=== PATIENT | female | born 1965 | race Caucasian/White ===

== ENCOUNTER 2016-09-29 14:23 | Outpatient (RCR) | payer BC ==
--- OUTSIDE RECORDS SUMMARY | 2016-09-24 15:33 | XMS REPORT | Continuity of Care Document ---
Author Author [facility] Organization [facility] Address Unknown Phone Unavailable Care Team Providers Care [employer] Maintenance Name Role Phone CHRIS CASTRO MD PCP Insurance Providers Payer Name Policy Number Subscriber Name Relationship [facility] [id number] Kristie Guerra Self / Same As Patient Advance Directives Directive Response Recorded Date/Time Advance Directives No 07/19/15 1:33pm Health Care Power of Senior Mechanical Development Engineer No 07/19/15 1:33pm Organ Donor No 07/19/15 1:33pm Problems Active Problems Medical Problem Onset Date Status Muscle strain Unknown Acute Medications Current Home Medications Medication Dose Units Route Directions Days/Qty Instructions Start Date Enalapril Maleate 20 Mg 20 Mg Oral Daily 01/28/11 Terazosin Hcl 5 Mg 5 Mg Oral Daily 01/28/11 Carvedilol (Coreg) 25 Mg 1 Each Oral Twice A Day 01/28/11 Hydrochlorothiazide 25 Mg 25 Mg Oral Daily 01/28/11 Pantoprazole Sodium 40 Mg 40 Mg Oral Daily 01/28/11 Citalopram Hydrobromide 20 Mg 20 Mg Oral Daily 06/12/11 Colestipol Hcl 1 Gm 1 Gm Oral Daily 03/15/14 Ibuprofen 200 Mg 200 Mg Oral As Needed for Pain 03/15/14 Topiramate 100 Mg 150 Mg Oral 03/16/14 [Flexeril] 5 Mg Oral Twice A Day as needed for Pain 10 07/19/15 Past Home Medications Medication Directions Ordered Status [Vit D] , 01/28/11 Discontinued [Tylenol Arthritis] , 01/28/11 Discontinued Methotrexate 2.5 Mg Tab, 2.5 Mg Oral Mon,Wed,Fri 01/28/11 Discontinued Paroxetine Hcl 20 Mg Tablet, 20 Mg Oral Daily 01/28/11 Discontinued Acetaminophen/Hydrocodone Bitart (Lorcet-Hd) 1 Each Capsule, 1 - 2 Each Oral Q 4 - 6 Hrs Prn 01/28/11 Discontinued Potassium Chloride 20 Meq Tabsr, 1 Each Oral Daily 06/12/11 Discontinued Cholecalciferol 2,000 Unit Capsule, 2000 Unit Oral Daily 06/12/11 Discontinued Multivitamins 1 Tab Tablet, 1 Tab Oral Daily 06/12/11 Discontinued Acetaminophen 650 Mg Cplt, 650 Mg Oral Four Times Daily 06/12/11 Discontinued Lorazepam (Ativan) 0.5 Mg Tablet, 1 Each Oral Daily 06/12/11 Discontinued Oxycodone Hcl 10 Mg Tablet, 5 Mg Oral Q 4 Hr Prn 06/26/11 Discontinued [place]-3 Fatty Acids/Fish Oil 1 Each Capsule, 1 Each Oral Twice A Day Discontinued Glimepiride 4 Mg Tab, 4 Mg Oral Daily@0630 03/15/14 Discontinued Social History Social History Problem Response Recorded Date/Time Alcohol Use Occasionally Uses 07/19/2015 1:33pm Recreational Drug Use No 07/19/2015 1:33pm Recent Foreign Travel N SEE [facility] 10/16/2015 2:09pm Sexually Transmitted Disease No 07/19/2015 1:33pm Do you dip or chew tobacco? No 07/19/2015 1:33pm Hospital Discharge Instructions No hospital discharge instructions. Plan of Care Prescriptions See Medication Section Functional Status No functional status results. Allergies, Adverse Reactions, Alerts No known allergies. Immunizations Name Given Type Date of Pneumonia Vaccine 03/16/11 Historical Vital Signs No known vital signs results. Results Laboratory Results Test Name Result Units Flags Reference Collection Date/Time Result Date/ Time Comments White Blood Count 3.3 10^3/uL L 4.3-11.0 10/16/2015 2:28pm 10/16/2015 2: 34pm Red Blood Count 4.31 10^6/uL L 4.35-5.85 10/16/2015 2:28pm 10/16/2015 2: 34pm Hemoglobin 12.1 G/DL 11.5-16.0 10/16/2015 2:28pm 10/16/2015 2:34pm Hematocrit 35 % 35-52 10/16/2015 2:10/16/2015 2:34pm Mean Corpuscular Volume 81 FL 80-99 10/16/2015 2:10/16/2015 2: 34pm Mean Corpuscular Hemoglobin 28 PG 25-34 10/16/2015 2:10/16/2015 2: 34pm Mean Corpuscular Hemoglobin Concent 35 G/DL 32-36 10/16/2015 2: 2:34pm Red Cell Distribution Width 15.4 % H 10.0-14.5 10/16/2015 2:2015 2:34pm Platelet Count 82 10^3/uL L 130-400 10/16/2015 2:10/16/2015 2:34pm Mean Platelet Volume 9.0 FL 7.4-10.4 10/16/2015 2:10/16/2015 2: 34pm Neutrophils (%) (Auto) 67 % 42-75 10/16/2015 2:10/16/2015 2:34pm Lymphocytes (%) (Auto) 25 % 12-44 10/16/2015 2:10/16/2015 2:34pm Monocytes (%) (Auto) 6 % 0-12 10/16/2015 2:10/16/2015 2:34pm Eosinophils (%) (Auto) 2 % 0-10 10/16/2015 2:10/16/2015 2:34pm Basophils (%) (Auto) 0 % 0-10 10/16/2015 2:10/16/2015 2:34pm Neutrophils # (Auto) 2.2 X 10^3 1.8-7.8 10/16/2015 2:10/16/2015 2: 34pm Lymphocytes # (Auto) 0.8 X 10^3 L 1.0-4.0 10/16/2015 2:10/16/2015 2: 34pm Monocytes # (Auto) 0.2 X 10^3 0.0-1.0 10/16/2015 2:10/16/2015 2: 34pm Eosinophils # (Auto) 0.1 10^3/uL 0.0-0.3 10/16/2015 2:10/16/2015 2 :34pm Basophils # (Auto) 0.0 10^3/uL 0.0-0.1 10/16/2015 2:10/16/2015 2: 34pm Sodium Level 139 MMOL/L 135-145 10/16/2015 2:10/16/2015 3:25pm Potassium Level 3.5 MMOL/L L 3.6-5.0 10/16/2015 2:10/16/2015 3:25pm Chloride Level 105 MMOL/L 98-107 10/16/2015 2:10/16/2015 3:25pm Carbon Dioxide Level 27 MMOL/L 21-32 10/16/2015 2:10/16/2015 3: 25pm Anion Gap 7 MMOL/L 5-14 10/16/2015 2:10/16/2015 3:25pm Blood Urea Nitrogen 13 MG/DL 7-18 10/16/2015 2:10/16/2015 3:25pm Creatinine 0.69 MG/DL 0.60-1.30 10/16/2015 2:10/16/2015 3:25pm BUN/Creatinine Ratio 19 10/16/2015 2:10/16/2015 3:25pm Estimat Glomerular Filtration Rate > 60 10/16/2015 2:2015 3:25pm GFR INTERPRETIVE DATA UNITS FOR ESTIMATED GFR (eGFR): mL/min/1.73 M2 REFERENCE RANGE FOR ESTIMATED GFR (eGFR) eGFR NORMAL eGFR >60 MODERATELY DECREASED eGFR 30-59 SEVERLY DECREASED eGFR 15-29 KIDNEY FAILURE <15 (OR DIALYSIS) Glucose Level 114 MG/DL H 70-105 10/16/2015 2:10/16/2015 3:25pm Calcium Level 9.0 MG/DL 8.5-10.1 10/16/2015 2:10/16/2015 3:25pm Magnesium Level 1.9 MG/DL 1.8-2.4 10/16/2015 2:10/16/2015 3:25pm Total Bilirubin 0.9 MG/DL 0.1-1.0 10/16/2015 2:10/16/2015 3:25pm Alkaline Phosphatase 114 U/L 40-136 10/16/2015 2:10/16/2015 3: 25pm Aspartate Amino Transf (AST/SGOT) 35 U/L H 5-34 10/16/2015 2:28pm 2015 3:25pm Alanine Aminotransferase (ALT/SGPT) 26 U/L 0-55 10/16/2015 2:28pm 10/16 3:25pm Lactate Dehydrogenase 211 U/L 125-220 10/16/2015 2:28pm 10/16/2015 3: 25pm Total Protein 7.4 G/DL 6.4-8.2 10/16/2015 2:28pm 10/16/2015 3:25pm Albumin 3.9 G/DL 3.2-4.5 10/16/2015 2:28pm 10/16/2015 3:25pm Ferritin 89 NG/ML 15-150 10/16/2015 2:28pm 10/17/2015 6:44am Test performed at [address], [place] [address] CLIA# [id number], Michelle Castañeda MD - [employer] Procedures No known history of procedures. Encounters Encounter Location Arrival/Admit Date Discharge/Depart Date Attending Provider Discharged Recurring [facility] 10/16/15 2:09pm 11:59pm MARIZA BAZZI
[2016-09-24 15:39] LABS: BASOPHILS % (AUTO) 0 % (0-10); EOSINOPHILS % (AUTO) 1 % (0-10); LYMPHOCYTES # (AUTO) 0.5 X 10^3 (1.0-4.0); LYMPHOCYTES % (AUTO) 18 % (12-44); MEAN CORPUSCULAR HEMOGLOBIN 28 PG (25-34); MEAN CORPUSCULAR HGB CONC 33 G/DL (32-36); MEAN CORPUSCULAR VOLUME 84 FL (80-99); MEAN PLATELET VOLUME 9.4 FL (7.4-10.4); MONOCYTES # (AUTO) 0.2 X 10^3 (0.0-1.0); MONOCYTES % (AUTO) 6 % (0-12); NEUTROPHILS # (AUTO) 2.3 X 10^3 (1.8-7.8); NEUTROPHILS % (AUTO) 75 % (42-75); PLATELET COUNT 61 10^3/uL (130-400); RED BLOOD COUNT 4.15 10^6/uL (4.35-5.85); RED CELL DISTRIBUTION WIDTH 15.9 % (10.0-14.5)
[2016-09-24 16:05] LABS: ALANINE AMINOTRANSFERASE 35 U/L (0-55); ALBUMIN 3.5 G/DL (3.2-4.5); ANION GAP 7 MMOL/L (5-14); ASPARTATE AMINO TRANSFERASE 32 U/L (5-34); BILIRUBIN,TOTAL 1.4 MG/DL (0.1-1.0); BLOOD UREA NITROGEN 13 MG/DL (7-18); BUN/CREATININE RATIO 16; CALCIUM 8.9 MG/DL (8.5-10.1); CARBON DIOXIDE 28 MMOL/L (21-32); CHLORIDE 100 MMOL/L (98-107); CREATININE SERUM 0.79 MG/DL (0.60-1.30); GFR ESTIMATED > 60; GLUCOSE 258 MG/DL (70-105); POTASSIUM 3.9 MMOL/L (3.6-5.0); SODIUM 135 MMOL/L (135-145); TOTAL PROTEIN 7.1 G/DL (6.4-8.2)
[~2016-09-29 14:23] MED LIST: CARV25TA PO; CHOL2000 PO; CITA20TA4 PO; COLE1TAB PO; ENAL20TA76 PO; FISH OIL 1,2001 EAC1 PO; GLMP4T PO; HCT25T PO; HYDR1CAP2 PO; IBUP200T48 PO; KCL20TCR PO; LORA0.5T PO; MTX2.5T PO; MULT-608 PO; NF-TYLARTH PO; OXYC10TA7 PO; PANT40TA PO; PARO20TA57 PO; TERA5CAP10 PO; TOPI100T2 PO; flexeril PO; tylenol arthritis; vit d
== END 2016-12-23 | disposition home or self-care (01) ==
LOC: ONC 14:23
PROVIDERS: ATTEND Internal Medicine Hematology & Oncology
DX: D61.818 Other pancytopenia (principal); E11.9 Type 2 diabetes mellitus without complications; I10 Essential (primary) hypertension; M06.9 Rheumatoid arthritis, unspecified; Z79.899 Other long term (current) drug therapy
CPT/HCPCS: 36415; 80053; 82728; 85025; 99213

== ENCOUNTER → 2017-03-25 | Outpatient (CLI) | payer BC | LOC: LAB 09:32 | PROVIDERS: ATTEND Allergy & Immunology | DX: M05.79 Rheumatoid arthritis with rheumatoid factor of multiple sites without organ or systems involvement (principal); Z79.899 Other long term (current) drug therapy | CPT/HCPCS: 36415; 85652; 86141 ==

== ENCOUNTER 2017-04-01 14:58 | Outpatient (RCR) | payer BC ==
[2017-03-25 09:35] LABS: BASOPHILS % (AUTO) 0 % (0-10); EOSINOPHILS % (AUTO) 2 % (0-10); LYMPHOCYTES # (AUTO) 0.5 X 10^3 (1.0-4.0); LYMPHOCYTES % (AUTO) 22 % (12-44); MEAN CORPUSCULAR HEMOGLOBIN 27 PG (25-34); MEAN CORPUSCULAR HGB CONC 33 G/DL (32-36); MEAN CORPUSCULAR VOLUME 81 FL (80-99); MEAN PLATELET VOLUME 8.9 FL (7.4-10.4); MONOCYTES # (AUTO) 0.2 X 10^3 (0.0-1.0); MONOCYTES % (AUTO) 9 % (0-12); NEUTROPHILS # (AUTO) 1.6 X 10^3 (1.8-7.8); NEUTROPHILS % (AUTO) 68 % (42-75); PLATELET COUNT 53 10^3/uL (130-400); RED BLOOD COUNT 3.88 10^6/uL (4.35-5.85); RED CELL DISTRIBUTION WIDTH 16.4 % (10.0-14.5); WHITE BLOOD COUNT 2.4 10^3/uL (4.3-11.0)
[2017-03-25 10:19] LABS: ALANINE AMINOTRANSFERASE 24 U/L (0-55); ALBUMIN 3.4 GM/DL (3.2-4.5); ANION GAP 7 MMOL/L (5-14); ASPARTATE AMINO TRANSFERASE 29 U/L (5-34); BILIRUBIN,TOTAL 1.6 MG/DL (0.1-1.0); BLOOD UREA NITROGEN 10 MG/DL (7-18); BUN/CREATININE RATIO 14; CALCIUM 8.5 MG/DL (8.5-10.1); CARBON DIOXIDE 26 MMOL/L (21-32); CHLORIDE 105 MMOL/L (98-107); CREATININE SERUM 0.69 MG/DL (0.60-1.30); GFR ESTIMATED > 60; GLUCOSE 212 MG/DL (70-105); LACTATE DEHYDROGENASE 212 U/L (125-220); POTASSIUM 3.6 MMOL/L (3.6-5.0); SODIUM 138 MMOL/L (135-145); TOTAL PROTEIN 6.9 GM/DL (6.4-8.2)
== END 2017-05-22 | disposition home or self-care (01) ==
LOC: ONC 14:58
PROVIDERS: ATTEND Internal Medicine Hematology & Oncology
DX: D61.818 Other pancytopenia (principal); E11.9 Type 2 diabetes mellitus without complications; I10 Essential (primary) hypertension; M06.9 Rheumatoid arthritis, unspecified; Z79.899 Other long term (current) drug therapy
CPT/HCPCS: 80053; 82105; 82728; 83615; 85025; 99213

== ENCOUNTER 2017-05-27 19:00 | Inpatient (IN) | payer BC ==
[~2017-05-27] VITALS: Ht 154.9 cm; Wt 105.7 kg
[2017-05-27 19:00] VITALS: BP 156/81
[2017-05-27] MEDS ORDERED: ACETAMINOPHEN 500 MG TAB (TYLENOL) PO PRN (19:45)
[2017-05-27] MEDS ORDERED: CATHETER FLUSH 10 ML SYR IV PRN (19:45)
[2017-05-27] MEDS ORDERED: fentaNYL INJECTION 100 MCG/2 ML AMP IV PRN (19:45)
[2017-05-27] MEDS ORDERED: KETOROLAC 15 MG/ML VIAL IV NR (19:45)
--- NOTE | 2017-05-27 19:56 | History & Physicial ---
History of Present Illness History of Present Illness Reason for visit/HPI PT PRESENTED HERSELF TO THE OFFICE TODAY WITH COMPLAINT OF A RASH IN HER GROIN, UNDER THE FOLD IN HER LOWER ABDOMINAL REGION WELL IN HER PUBIC AREA. SHE STATES THAT THE RASH STARTED ON 05/18/17 AND HAS GOTTEN PROGRESSIVELY WORSE. SHE HAD MEDICATION THAT SHE WAS USING CLOBETASOL AND KETOCONAZOLE CREAM AND NYSTATIN POWDER. SHE ALSO TOOK 3 DIFLUCAN PILLS. SHE REPORTS THAT SHE HAS BEEN HAVING CHILLS, NO FEVERS, BUT HAS BEEN HAVING BODY ACHES AND FATIGUED. SHE DID NOT WANT TO BE ADMITTED, BUT WE TALKED HER INTO ADMISSION. Date of Admission May 27, 2017 at 19:02 Date Seen by Provider: May 27, 2017 Time Seen by Provider: 20:15 Attending Physician Chris Snider MD Admitting Physician Chris Snider MD Consult Allergies and Home Medications Allergies Coded Allergies: bacitracin (Verified Allergy, Unknown, 05/28/17) neomycin (Verified Allergy, Unknown, 05/28/17) polymyxin B (Verified Allergy, Unknown, 05/28/17) Home Medications Ascorbic Acid 1,000 Mg Tablet, 1,000 MG PO DAILY, (Reported) Biotin 1,000 Mcg Tablet, 1,000 MCG PO DAILY, (Reported) Carvedilol 25 Mg Tablet, 25 MG PO BID, (Reported) Cholecalciferol (Vitamin D3) 2,000 Unit Capsule, 2,000 UNIT PO DAILY, (Reported) Colestipol HCl 1 Gm Tablet, 1 GM PO DAILY, (Reported) Cyanocobalamin (Vitamin B-12) 1,000 Mcg Tablet, 1,000 MCG PO DAILY, (Reported) Enalapril Maleate 20 Mg Tablet, 20 MG PO DAILY, (Reported) Escitalopram Oxalate 20 Mg Tablet, 20 MG PO DAILY, (Reported) Ferrous Sulfate 325 Mg Tablet, 325 MG PO DAILY, (Reported) Hydrochlorothiazide 25 Mg Tablet, 25 MG PO DAILY, (Reported) Ibuprofen 200 Mg Tablet, 400 MG PO DAILY PRN for PAIN-MILD, (Reported) Magnesium Chloride 64 Mg Tab, 64 MG PO BID, (Reported) Omeprazole 40 Mg Capsule.dr, 40 MG PO HS, (Reported) Potassium Chloride 20 Meq Tab.er.prt, 40 MEQ PO BID, (Reported) TAKES 2 (20MEQ) TABLETS Prednisone 5 Mg Tablet, 5 MG PO DAILY, (Reported) Terazosin HCl 5 Mg Capsule, 5 MG PO DAILY, (Reported) Topiramate 50 Mg Tablet, 50 MG PO BID, (Reported) Vitamin E Acetate 400 Unit Capsule, 400 UNIT PO BID, (Reported) Past Koyfcox-Pamgzb-Xgrzoa Hx Patient Social History Marrital Status: Living Status: LIVES AT HOME WITH SPOUSE Employed/Student: employed Alcohol Use: Denies Use Recreational Drug Use: No Smoking Status: Never a Smoker 2nd Hand Smoke Exposure: No Physical Abuse Screen: No Sexual Abuse: No Recent Foreign Travel: No Contact w/other who traveled: No Recent Hopitalizations: No Recent Infectious Disease Expo: No Immunizations Up To Date Date of Pneumonia Vaccine: Mar 16, 2011 Seasonal Allergies Seasonal Allergies: Yes Surgeries Yes Abdominal (CSECTION), Appendectomy, Gallbladder Respiratory No Currently Using CPAP: No Currently Using BIPAP: No Cardiovascular Yes High Cholesterol, Hypertension Neurological Yes Headaches /Migraines Reproductive System : No Hx Reproductive Disorders: No Sexually Transmitted Disease: No Genitourinary No Gastrointestinal Yes Esophageal Varices, Cirrhosis Musculoskeletal No Endocrine History of Endocrine Disorders: Yes Endocrine Disorders: Diabetes, Non-Insulin dep HEENT History of HEENT Disorders: No Loss of Vision: Denies Hearing Impairment: Denies Cancer No Psychosocial History of Psychiatric Problem: Yes Behavioral Health Disorders: Anxiety, Depression Integumentary History of Skin or Integumenta: Yes Skin/Integumentary Disorders: Psoriasis Blood Transfusions History of Blood Disorders: No Adverse Reaction to a Blood Tr: No Reviewed Nursing Assessment Reviewed/Agree w Nursing PMH: Yes Family Medical History Significant Family History: Heart Disease, Hypertension Constitutional: chills, No diaphoresis, fever, malaise EENTM: No hoarseness, No nose pain, No throat swelling Respiratory: No cough, No dyspnea on exertion, No short of breath Cardiovascular: No chest pain, No edema Gastrointestinal: No abdominal pain, No constipation, No diarrhea, No nausea, No vomiting Genitourinary: other (PAIN AND INFLAMMATION OVER PUBIS) Musculoskeletal: No muscle pain, No muscle weakness Skin: other (ERYTHEMA FROM TOP OF SUPRAPUBIC REGION DOWN TO THIGHS BELOW INGUINAL REGION) Psychiatric/Neurological: Denies Anxiety, Denies Depressed, Denies Headache All Other Systems Reviewed Negative Unless Noted: Yes Physical Exam Vital Signs Vital Sign - Last 12Hours 05/27/17 19:00 Temp 99.5 Pulse 78 Resp 18 B/P (MAP) 156/81 Pulse Ox 95 O2 Delivery Room Air Capillary Refill : General Appearance: No Apparent Distress, WD/WN Eyes: Bilateral Eye Normal Inspection, Bilateral Eye PERRL, Bilateral Eye EOMI HEENT: PERRL/EOMI, Pharynx Normal Neck: Full Range of Motion, Supple Respiratory: Chest Non Tender, Lungs Clear, Normal Breath Sounds, No Accessory Muscle Use Cardiovascular: Regular Rate, Rhythm Gastrointestinal: Normal Bowel Sounds, Non Tender, Soft Rectal: Deferred Back: Normal Inspection Extremity: Normal Capillary Refill, Non Tender, No Calf Tenderness, No Pedal Edema Neurologic/Psychiatric: Alert, Oriented x3, No Motor/Sensory Deficits, Normal Mood/Affect Skin: Erythema (AT SUPRAPUBIC REGION DOWN TO BILATERAL GROIN AND ON TOP OF THIGHS BILATERALLY) Assessment/Plan Assessment and Plan PANNICULITIS CELLULITIS HYPERTENSION PSORIASIS HYPERLIPIDEMIA DEPRESSION ANXIETY ESOPHAGEAL REFLUX PANNICULITIS - CELLULITIS - PT ON IV VANCOMYCIN - CULTURE OF SUPRAPUBIC REGION PENDING. HYPERTENSION - RESTARTED CARVEDILOL, WILL VERIFY HOME MEDICATIONS. PSORIASIS - MONITOR SYMPTOMS - RESTART PREDNISONE. HYPERLIPIDEMIA - HOLD HOME MEDICATIONS. DEPRESSION - RESTART SSRI. ANXIETY - ALPRAZOLAM RESTARTED. ESOPHAGEAL REFLUX - RESTART PPI. Problems: Admission Diagnosis PANNICULITIS CELLULITIS HYPERTENSION PSORIASIS HYPERLIPIDEMIA DEPRESSION ANXIETY ESOPHAGEAL REFLUX CHRIS SNIDER MD May 27, 2017 19:56
[2017-05-27 20:00] LABS: BASOPHILS % (AUTO) 1 % (0-10); EOSINOPHILS % (AUTO) 1 % (0-10); LYMPHOCYTES # (AUTO) 0.7 X 10^3 (1.0-4.0); LYMPHOCYTES % (AUTO) 18 % (12-44); MEAN CORPUSCULAR HEMOGLOBIN 27 PG (25-34); MEAN CORPUSCULAR HGB CONC 33 G/DL (32-36); MEAN CORPUSCULAR VOLUME 81 FL (80-99); MEAN PLATELET VOLUME 10.3 FL (7.4-10.4); MONOCYTES # (AUTO) 0.4 X 10^3 (0.0-1.0); MONOCYTES % (AUTO) 10 % (0-12); NEUTROPHILS # (AUTO) 2.7 X 10^3 (1.8-7.8); NEUTROPHILS % (AUTO) 70 % (42-75); PLATELET COUNT 66 10^3/uL (130-400); RED BLOOD COUNT 4.36 10^6/uL (4.35-5.85); RED CELL DISTRIBUTION WIDTH 15.2 % (10.0-14.5); WHITE BLOOD COUNT 3.8 10^3/uL (4.3-11.0)
[2017-05-27] MEDS: VANCOMYCIN 1500 MG/NS 500 ML IVPB IV SCH ×2 (20:03)
[2017-05-27 20:23] LABS: ALANINE AMINOTRANSFERASE 23 U/L (0-55); ALBUMIN 3.6 GM/DL (3.2-4.5); ANION GAP 8 MMOL/L (5-14); ASPARTATE AMINO TRANSFERASE 27 U/L (5-34); BILIRUBIN,TOTAL 1.8 MG/DL (0.1-1.0); BLOOD UREA NITROGEN 10 MG/DL (7-18); BUN/CREATININE RATIO 14; CALCIUM 9.1 MG/DL (8.5-10.1); CARBON DIOXIDE 27 MMOL/L (21-32); CHLORIDE 103 MMOL/L (98-107); CREATININE SERUM 0.72 MG/DL (0.60-1.30); GFR ESTIMATED > 60; GLUCOSE 110 MG/DL (70-105); POTASSIUM 3.8 MMOL/L (3.6-5.0); SODIUM 138 MMOL/L (135-145); TOTAL PROTEIN 7.5 GM/DL (6.4-8.2)
[2017-05-27] MEDS: NS IV 1000 ML 1,000 ML IV SCH (20:37)
[2017-05-27] MEDS: MUPIROCIN 2% OINT 22 GM (BACTROBAN) TUBE TOP SCH (20:37)
[2017-05-27] MEDS: LACTOBACILLUS Acidoph/Bulgar (LACTINEX/FLORANEX) TAB PO SCH (20:37)
[2017-05-28] VITALS: BP 168/75
[2017-05-28 04:10] VITALS: BP 158/77
[2017-05-28 06:47] LABS: BASOPHILS % (AUTO) 0 % (0-10); EOSINOPHILS # (AUTO) 0.1 10^3/uL (0.0-0.3); EOSINOPHILS % (AUTO) 2 % (0-10); LYMPHOCYTES # (AUTO) 0.6 X 10^3 (1.0-4.0); LYMPHOCYTES % (AUTO) 20 % (12-44); MEAN CORPUSCULAR HEMOGLOBIN 27 PG (25-34); MEAN CORPUSCULAR HGB CONC 33 G/DL (32-36); MEAN CORPUSCULAR VOLUME 82 FL (80-99); MEAN PLATELET VOLUME 10.1 FL (7.4-10.4); MONOCYTES # (AUTO) 0.3 X 10^3 (0.0-1.0); MONOCYTES % (AUTO) 11 % (0-12); NEUTROPHILS % (AUTO) 68 % (42-75); PLATELET COUNT 64 10^3/uL (130-400); RED BLOOD COUNT 4.05 10^6/uL (4.35-5.85); RED CELL DISTRIBUTION WIDTH 15.2 % (10.0-14.5); WHITE BLOOD COUNT 2.9 10^3/uL (4.3-11.0)
[2017-05-28] MEDS ORDERED: INFLUENZA TRIvalent 2017-2018 0.5 ML/45 MCG SYR IM ONE (07:00)
[2017-05-28 07:10] LABS: ALANINE AMINOTRANSFERASE 21 U/L (0-55); ALBUMIN 3.2 GM/DL (3.2-4.5); ANION GAP 6 MMOL/L (5-14); ASPARTATE AMINO TRANSFERASE 23 U/L (5-34); BILIRUBIN,TOTAL 1.7 MG/DL (0.1-1.0); BLOOD UREA NITROGEN 10 MG/DL (7-18); BUN/CREATININE RATIO 14; CALCIUM 8.7 MG/DL (8.5-10.1); CARBON DIOXIDE 28 MMOL/L (21-32); CHLORIDE 107 MMOL/L (98-107); CREATININE SERUM 0.73 MG/DL (0.60-1.30); GFR ESTIMATED > 60; GLUCOSE 139 MG/DL (70-105); POTASSIUM 3.4 MMOL/L (3.6-5.0); SODIUM 141 MMOL/L (135-145); TOTAL PROTEIN 6.7 GM/DL (6.4-8.2)
[2017-05-28 08:02] VITALS: BP 176/91
[2017-05-28] MEDS: VANCOMYCIN 1500 MG/NS 500 ML IVPB IV SCH ×4 (08:15→20:29)
[2017-05-28] MEDS: LACTOBACILLUS Acidoph/Bulgar (LACTINEX/FLORANEX) TAB PO SCH ×4 (09:37→20:24)
[2017-05-28] MEDS: MUPIROCIN 2% OINT 22 GM (BACTROBAN) TUBE TOP SCH ×3 (09:38→20:24)
--- NOTE | 2017-05-28 09:48 | Progress Note (SOAP) ---
Subjective Date Seen by Provider: May 28, 2017 Time Seen by Provider: 09:50 Subjective/Events-last exam PT REPORTS THAT SHE IS FEELING A LITTLE BETTER TODAY. SHE REPORTS THAT SHE IS STILL HAVING SOME DISCOMFORT IN HER GROIN, BUT IT HAS ALSO IMPROVED. SHE STATES THAT SHE HAS NOT HAD FEVERS, HER CHILLS ARE BETTER. Review of Systems General: Fatigue HEENT: No Head Aches Pulmonary: No Dyspnea, No Cough Cardiovascular: No: Chest Pain Gastrointestinal: No: Nausea Genitourinary: No Dysuria Neurological: Weakness ERYTHEMA OF SKIN Objective Exam Vital Signs Date Time Temp Pulse Resp B/P (MAP) Pulse Ox O2 Delivery O2 Flow Rate FiO2 05/28/17 08:02 97.5 67 18 176/91 96 Room Air 05/28/17 04:10 97.0 69 18 158/77 96 Room Air 05/28/17 00:00 97.5 72 19 168/75 97 Room Air 05/27/17 19:00 99.5 78 18 156/81 95 Room Air Capillary Refill : General Appearance: No Apparent Distress, WD/WN HEENT: PERRL/EOMI Neck: Full Range of Motion, Supple Respiratory: Chest Non Tender, Lungs Clear, Normal Breath Sounds Gastrointestinal: normal bowel sounds, non tender, soft Extremity: Normal Capillary Refill Neurologic/Psychiatric: Alert, Oriented x3, Normal Mood/Affect Skin: Erythema (IN GROIN, MACERATED SKIN TISSUE, - ERYTHEMA HAS IMPROVED FROM ON ADMISSION.) Results Lab Laboratory Tests 05/27/17 19:40: White Blood Count 3.8L, Red Blood Count 4.36, Hemoglobin 11.8, Hematocrit 35, Mean Corpuscular Volume 81, Mean Corpuscular Hemoglobin 27, Mean Corpuscular Hemoglobin Concent 33, Red Cell Distribution Width 15.2H, Platelet Count 66L, Mean Platelet Volume 10.3, Neutrophils (%) (Auto) 70, Lymphocytes (%) (Auto) 18 , Monocytes (%) (Auto) 10, Eosinophils (%) (Auto) 1, Basophils (%) (Auto) 1, Neutrophils # (Auto) 2.7, Lymphocytes # (Auto) 0.7L, Monocytes # (Auto) 0.4, Eosinophils # (Auto) 0.0, Basophils # (Auto) 0.0, Sodium Level 138, Potassium Level 3.8, Chloride Level 103, Carbon Dioxide Level 27, Anion Gap 8, Blood Urea Nitrogen 10, Creatinine 0.72, Estimat Glomerular Filtration Rate > 60, BUN/ Creatinine Ratio 14, Glucose Level 110H, Lactic Acid Level 0.80, Calcium Level 9.1, Total Bilirubin 1.8H, Aspartate Amino Transf (AST/SGOT) 27, Alanine Aminotransferase (ALT/SGPT) 23, Alkaline Phosphatase 116, Total Protein 7.5, Albumin 3.6 05/28/17 03:54: Glucometer 156H 05/28/17 06:12: White Blood Count 2.9L, Red Blood Count 4.05L, Hemoglobin 11.0L, Hematocrit 33L , Mean Corpuscular Volume 82, Mean Corpuscular Hemoglobin 27, Mean Corpuscular Hemoglobin Concent 33, Red Cell Distribution Width 15.2H, Platelet Count 64L, Mean Platelet Volume 10.1, Neutrophils (%) (Auto) 68, Lymphocytes (%) (Auto) 20 , Monocytes (%) (Auto) 11, Eosinophils (%) (Auto) 2, Basophils (%) (Auto) 0, Neutrophils # (Auto) 2.0, Lymphocytes # (Auto) 0.6L, Monocytes # (Auto) 0.3, Eosinophils # (Auto) 0.1, Basophils # (Auto) 0.0, Sodium Level 141, Potassium Level 3.4L, Chloride Level 107, Carbon Dioxide Level 28, Anion Gap 6, Blood Urea Nitrogen 10, Creatinine 0.73, Estimat Glomerular Filtration Rate > 60, BUN/ Creatinine Ratio 14, Glucose Level 139H, Calcium Level 8.7, Total Bilirubin 1.7H , Aspartate Amino Transf (AST/SGOT) 23, Alanine Aminotransferase (ALT/SGPT) 21, Alkaline Phosphatase 118, Total Protein 6.7, Albumin 3.2 Assessment/Plan Assessment/Plan Assess & Plan/Chief Complaint PANNICULITIS CELLULITIS HYPERTENSION PSORIASIS HYPERLIPIDEMIA DEPRESSION ANXIETY ESOPHAGEAL REFLUX PANNICULITIS - CELLULITIS - PT ON IV VANCOMYCIN - CULTURE OF SUPRAPUBIC REGION PENDING. HYPERTENSION - RESTARTED CARVEDILOL, WILL VERIFY HOME MEDICATIONS AND RESTART CHANG-I. PSORIASIS - MONITOR SYMPTOMS - RESTARTED PREDNISONE. HYPERLIPIDEMIA - HOLD HOME MEDICATIONS. DEPRESSION - RESTART SSRI. ANXIETY - ALPRAZOLAM RESTARTED. ESOPHAGEAL REFLUX - RESTART PPI. ANTICIPATE THAT THE PATIENT MAY BE ABLE TO BE DISCHARGED WEDNESDAY OR WEDNESDAY OF NEXT WEEK. Clinical Quality Measures DVT/VTE Risk/Contraindication: Risk Factor Score Per Nursin RFS Level Per Nursing on Admit: 3=High Contraindications-Pharm: Other *list below* Other: low plt level and infection in abdomen CHRIS CASTRO MD May 28, 2017 09:48
[2017-05-28] MEDS ORDERED: PRED5TAB PO (10:07)
[2017-05-28] MEDS ORDERED: CARV25TA PO (10:07)
[2017-05-28] MEDS ORDERED: VITA400C60 PO (10:07)
[2017-05-28] MEDS ORDERED: POTA20TA8 PO (10:07)
[2017-05-28] MEDS ORDERED: NFBIOT1000 PO (10:07)
[2017-05-28] MEDS ORDERED: ENAL20TA PO (10:07)
[2017-05-28] MEDS ORDERED: COLE1TAB PO (10:07)
[2017-05-28] MEDS ORDERED: HYDR25TA4 PO (10:07)
[2017-05-28] MEDS ORDERED: CYAN10006 PO (10:07)
[2017-05-28] MEDS ORDERED: CHOL20003 PO (10:07)
[2017-05-28] MEDS ORDERED: FERR-84 PO (10:07)
[2017-05-28] MEDS ORDERED: ESCI20TA45 PO (10:07)
[2017-05-28] MEDS ORDERED: TOPI50TA13 PO (10:07)
[2017-05-28] MEDS ORDERED: NF-MAG64T PO (10:07)
[2017-05-28] MEDS ORDERED: IBUP-2055 PO (10:07)
[2017-05-28] MEDS ORDERED: ASCO10006 PO (10:07)
[2017-05-28] MEDS ORDERED: OMEP40CA36 PO (10:07)
[2017-05-28] MEDS ORDERED: TERA5CAP3 PO (10:07)
[2017-05-28 12:55] VITALS: BP 183/96
[2017-05-28] MEDS ORDERED: cloNIDine 0.1 MG (CATAPRES) TAB PO NR (14:15)
[2017-05-28] MEDS: NS IV 1000 ML 1,000 ML IV SCH ×2 (15:43→22:33)
[2017-05-28 16:00] VITALS: BP 173/82
[2017-05-28] MEDS: KCL 20 MEQ TAB (K-DUR) PO SCH (17:10)
[2017-05-28] MEDS ORDERED: TROUGH ORDER-PHARMACY XX NR (19:00)
[2017-05-28 20:11] VITALS: BP 183/83
[2017-05-28] MEDS: toPIRamate 25 MG (TOPAMAX) TAB PO SCH (20:24)
[2017-05-28] MEDS: CARVEDILOL 12.5 MG (COREG) TABLET PO SCH ×2 (20:24→22:30)
[2017-05-28] MEDS: PANTOPRAZOLE 40 MG (PROTONIX) TAB PO SCH (20:24)
[2017-05-28] MEDS: IBUPROFEN TABLET 200 MG TAB PO PRN (20:26)
[2017-05-28] MEDS ORDERED: NON-FORMULARY MEDICATION 1 EA EA (Topiramate 50 MG) PO SCH (21:00)
[2017-05-28] MEDS ORDERED: NON-FORMULARY MEDICATION 1 EA EA (Omeprazole 40 MG) PO SCH (21:00)
[2017-05-29] VITALS: BP 174/94
[2017-05-29 04:00] VITALS: BP 173/84
[2017-05-29] MEDS: KCL 20 MEQ TAB (K-DUR) PO SCH ×2 (05:59→17:10)
[2017-05-29 08:00] VITALS: BP 146/76
[2017-05-29] MEDS: NS IV 1000 ML 1,000 ML IV SCH (08:15)
[2017-05-29] MEDS ORDERED: NON-FORMULARY MEDICATION 1 EA EA (Cholecalciferol (Vitamin D3) (Vitamin D3) 2,000 UNIT) PO SCH (09:00)
[2017-05-29] MEDS ORDERED: NON-FORMULARY MEDICATION 1 EA EA (Enalapril Maleate 20 MG) PO SCH (09:00)
[2017-05-29] MEDS ORDERED: NON-FORMULARY MEDICATION 1 EA EA (Cyanocobalamin (Vitamin B-12) (Vitamin B-12) 1,000 MCG) PO SCH (09:00)
[2017-05-29] MEDS ORDERED: NON-FORMULARY MEDICATION 1 EA EA (Escitalopram Oxalate 20 MG) PO SCH (09:00)
[2017-05-29] MEDS: VANCOMYCIN 1500 MG/NS 500 ML IVPB IV SCH ×4 (09:02→20:16)
[2017-05-29] MEDS: predniSONE 5 MG TAB PO SCH (09:02)
[2017-05-29] MEDS: TERAZOSIN 5 MG (HYTRIN) CAPSULE PO SCH (09:48)
[2017-05-29] MEDS: HYDROCHLOROTHIAZIDE 25 MG (HCTZ) TAB PO SCH (09:48)
[2017-05-29] MEDS: CARVEDILOL 12.5 MG (COREG) TABLET PO SCH ×2 (09:48→20:15)
[2017-05-29] MEDS: toPIRamate 25 MG (TOPAMAX) TAB PO SCH ×2 (09:48→20:15)
[2017-05-29] MEDS: LACTOBACILLUS Acidoph/Bulgar (LACTINEX/FLORANEX) TAB PO SCH ×4 (09:49→20:15)
[2017-05-29] MEDS: VITAMIN D3 1,000 UNITS (CHOLECALCIFEROL) TABLET PO SCH (09:49)
[2017-05-29] MEDS: ENALAPRIL 10 MG (VASOTEC) TAB PO SCH (09:49)
[2017-05-29] MEDS: MUPIROCIN 2% OINT 22 GM (BACTROBAN) TUBE TOP SCH ×3 (09:50→20:16)
[2017-05-29] MEDS: CYANOCOBALAMIN 500 MCG TAB (VITAMIN B-12) PO SCH (09:50)
[2017-05-29] MEDS ORDERED: CATHETER FLUSH 10 ML SYR IV PRN (10:45)
--- NOTE | 2017-05-29 11:17 | Progress Note-Hospitalist ---
Subjective HPI/CC On Admission Date Seen by Provider: May 29, 2017 Time Seen by Provider: 10:45 Subjective/Events-last exam patient continues to have pretty severe pain around the panniculus. She just got out of the shower says that she is doing somewhat better. Review of Systems Gastrointestinal: Abdominal Pain Objective Exam Vital Signs Vital Sign - Last 12Hours 05/27/17 19:00 Temp 99.5 Pulse 78 Resp 18 B/P (MAP) 156/81 Pulse Ox 95 O2 Delivery Room Air Capillary Refill : General Appearance: No Apparent Distress, WD/WN HEENT: Normal ENT Inspection Neck: Supple Respiratory: Lungs Clear, Normal Breath Sounds, No Accessory Muscle Use, No Respiratory Distress Cardiovascular: Regular Rate, Rhythm, No Gallop, No Murmur Gastrointestinal: Soft Skin: Erythema, Rash, Other Assessment/Plan Assessment and Plan Assess & Plan/Chief Complaint PANNICULITIS CELLULITIS HYPERTENSION PSORIASIS HYPERLIPIDEMIA DEPRESSION ANXIETY ESOPHAGEAL REFLUX PANNICULITIS - CELLULITIS - PT ON IV VANCOMYCIN-date number 3 - CULTURE shows a strep organism HYPERTENSION - RESTARTED CARVEDILOL, WILL VERIFY HOME MEDICATIONS AND RESTART CHANG-I. PSORIASIS - MONITOR SYMPTOMS - RESTARTED PREDNISONE. HYPERLIPIDEMIA - HOLD HOME MEDICATIONS. DEPRESSION - RESTART SSRI. ANXIETY - ALPRAZOLAM RESTARTED. ESOPHAGEAL REFLUX - RESTART PPI. pancytopenia of uncertain etiology previously seen by Dr. Viveros. This appears to be stable at this time We'll Hep-Lock her IV fluids, and continue to encourage her to ambulate. VINICIUS SHAW MD May 29, 2017 11:17
[2017-05-29 12:00] VITALS: BP 152/65
[2017-05-29] MEDS ORDERED: CATHETER FLUSH 10 ML SYR IV SCH (14:00)
[2017-05-29 15:30] VITALS: BP 127/60
[2017-05-29 20:00] VITALS: BP 192/81
[2017-05-29] MEDS: PANTOPRAZOLE 40 MG (PROTONIX) TAB PO SCH (20:15)
[2017-05-29] MEDS: IBUPROFEN TABLET 200 MG TAB PO PRN (20:15)
[2017-05-30] VITALS: BP 176/81
[2017-05-30] MEDS: KCL 20 MEQ TAB (K-DUR) PO SCH ×2 (05:49→17:16)
[2017-05-30] MEDS ORDERED: TROUGH ORDER-PHARMACY XX NR (06:00)
[2017-05-30 08:00] VITALS: BP 147/67
[2017-05-30] MEDS: predniSONE 5 MG TAB PO SCH (08:14)
[2017-05-30] MEDS: VANCOMYCIN 1500 MG/NS 500 ML IVPB IV SCH ×4 (08:14→20:07)
[2017-05-30 09:24] LABS: BASOPHILS % (AUTO) 1 % (0-10); EOSINOPHILS # (AUTO) 0.1 10^3/uL (0.0-0.3); EOSINOPHILS % (AUTO) 3 % (0-10); LYMPHOCYTES # (AUTO) 0.7 X 10^3 (1.0-4.0); LYMPHOCYTES % (AUTO) 23 % (12-44); MEAN CORPUSCULAR HEMOGLOBIN 27 PG (25-34); MEAN CORPUSCULAR HGB CONC 33 G/DL (32-36); MEAN CORPUSCULAR VOLUME 82 FL (80-99); MEAN PLATELET VOLUME 10.6 FL (7.4-10.4); MONOCYTES # (AUTO) 0.2 X 10^3 (0.0-1.0); MONOCYTES % (AUTO) 9 % (0-12); NEUTROPHILS # (AUTO) 1.8 X 10^3 (1.8-7.8); NEUTROPHILS % (AUTO) 65 % (42-75); PLATELET COUNT 66 10^3/uL (130-400); RED BLOOD COUNT 3.98 10^6/uL (4.35-5.85); RED CELL DISTRIBUTION WIDTH 15.2 % (10.0-14.5); WHITE BLOOD COUNT 2.8 10^3/uL (4.3-11.0)
[2017-05-30 09:37] LABS: ALANINE AMINOTRANSFERASE 20 U/L (0-55); ALBUMIN 3.1 GM/DL (3.2-4.5); ANION GAP 5 MMOL/L (5-14); ASPARTATE AMINO TRANSFERASE 22 U/L (5-34); BILIRUBIN,TOTAL 1.3 MG/DL (0.1-1.0); BLOOD UREA NITROGEN 7 MG/DL (7-18); BUN/CREATININE RATIO 11; CALCIUM 8.7 MG/DL (8.5-10.1); CARBON DIOXIDE 29 MMOL/L (21-32); CHLORIDE 108 MMOL/L (98-107); CREATININE SERUM 0.66 MG/DL (0.60-1.30); GFR ESTIMATED > 60; GLUCOSE 138 MG/DL (70-105); POTASSIUM 3.5 MMOL/L (3.6-5.0); SODIUM 142 MMOL/L (135-145); TOTAL PROTEIN 6.5 GM/DL (6.4-8.2)
[2017-05-30 10:03] LABS: ERYTHROCYTE SEDIMENTATION RATE 32 MM/HR (0-30)
[2017-05-30] MEDS: MUPIROCIN 2% OINT 22 GM (BACTROBAN) TUBE TOP SCH ×3 (10:08→20:08)
[2017-05-30] MEDS: LACTOBACILLUS Acidoph/Bulgar (LACTINEX/FLORANEX) TAB PO SCH ×4 (10:08→20:07)
[2017-05-30] MEDS: VITAMIN D3 1,000 UNITS (CHOLECALCIFEROL) TABLET PO SCH (10:09)
[2017-05-30] MEDS: CARVEDILOL 12.5 MG (COREG) TABLET PO SCH ×2 (10:09→20:07)
[2017-05-30] MEDS: TERAZOSIN 5 MG (HYTRIN) CAPSULE PO SCH (10:09)
[2017-05-30] MEDS: HYDROCHLOROTHIAZIDE 25 MG (HCTZ) TAB PO SCH (10:09)
[2017-05-30] MEDS: CYANOCOBALAMIN 500 MCG TAB (VITAMIN B-12) PO SCH (10:09)
[2017-05-30] MEDS: toPIRamate 25 MG (TOPAMAX) TAB PO SCH ×2 (10:10→20:07)
[2017-05-30] MEDS: ENALAPRIL 10 MG (VASOTEC) TAB PO SCH (10:10)
--- NOTE | 2017-05-30 10:57 | Progress Note-Hospitalist ---
Subjective HPI/CC On Admission Date Seen by Provider: May 30, 2017 Time Seen by Provider: 09:45 Subjective/Events-last exam patient is somewhat depressed about the recurrent panniculitis that she's had. Her pancytopenia remains about stable. afebrile Objective Exam Vital Signs Vital Sign - Last 12Hours 05/27/17 19:00 Temp 99.5 Pulse 78 Resp 18 B/P (MAP) 156/81 Pulse Ox 95 O2 Delivery Room Air Capillary Refill : General Appearance: No Apparent Distress HEENT: Normal ENT Inspection Neck: Supple Respiratory: Normal Breath Sounds, No Accessory Muscle Use, No Respiratory Distress Cardiovascular: Regular Rate, Rhythm, No Gallop, No Murmur Gastrointestinal: Soft Extremity: No Pedal Edema Neurologic/Psychiatric: Alert, Oriented x3, No Motor/Sensory Deficits, Normal Mood/Affect Skin: Erythema, Rash Results/Procedures Lab Laboratory Tests 05/30/17 05:55 Assessment/Plan Assessment and Plan Assess & Plan/Chief Complaint PANNICULITIS CELLULITIS HYPERTENSION PSORIASIS HYPERLIPIDEMIA DEPRESSION ANXIETY ESOPHAGEAL REFLUX PANNICULITIS - CELLULITIS - PT ON IV VANCOMYCIN-date number 4 - CULTURE shows a strep [id number] require surgery in the future for removal of the panniculus in light of her weight loss HYPERTENSION - RESTARTED CARVEDILOL, WILL VERIFY HOME MEDICATIONS AND RESTART CHANG-I. PSORIASIS - MONITOR SYMPTOMS - RESTARTED PREDNISONE. HYPERLIPIDEMIA - HOLD HOME MEDICATIONS. DEPRESSION - RESTART SSRI. ANXIETY - ALPRAZOLAM RESTARTED. ESOPHAGEAL REFLUX - RESTART PPI. pancytopenia of uncertain etiology previously seen by Dr. Viveros. This appears to be stable at this time- encouraged to her to ambulate. VINICIUS SHAW MD May 30, 2017 10:57
[2017-05-30 16:06] VITALS: BP 153/65
[2017-05-30] MEDS: PANTOPRAZOLE 40 MG (PROTONIX) TAB PO SCH (20:07)
[2017-05-31] VITALS: BP 150/90
[2017-05-31] MEDS: KCL 20 MEQ TAB (K-DUR) PO SCH ×2 (06:01→17:59)
[2017-05-31 08:00] VITALS: BP 174/76
[2017-05-31] MEDS: predniSONE 5 MG TAB PO SCH (08:00)
[2017-05-31] MEDS: MUPIROCIN 2% OINT 22 GM (BACTROBAN) TUBE TOP SCH (08:31)
--- NOTE | 2017-05-31 09:08 | Progress Note (SOAP) ---
Subjective Date Seen by Provider: May 31, 2017 Time Seen by Provider: 08:25 Subjective/Events-last exam PT REPORTS THAT SHE HAS A RASH ACROSS HER CHEST. SHE REPORTS THAT SHE HAS DISCOMFORT STILL IN HER ABDOMEN, BUT IT IS BETTER THAN ON ADMISSION. SHE ALSO REPORTS FEELING "HOT" AFTER GETTING MOTRIN YESTERDAY EVENING. SHE FEELS DEPRESSED BECAUSE SHE IS STILL IN THE HOSPITAL WITH THE INFECTION OF HER PANUS. SHE IS ALSO WONDERING ABOUT A REFERRAL TO A SURGEON FOR PANNICULECTOMY. Review of Systems General: Fatigue HEENT: No Head Aches Pulmonary: No Dyspnea, No Cough Cardiovascular: No: Chest Pain, Palpitations Gastrointestinal: Abdominal Pain, No: Nausea Neurological: No: Weakness, Confusion ERYTHEMA OF SKIN Objective Exam Vital Signs Date Time Temp Pulse Resp B/P (MAP) Pulse Ox O2 Delivery O2 Flow Rate FiO2 05/31/17 08:00 97.8 75 16 174/76 96 Room Air 05/31/17 00:00 97.7 73 18 150/90 96 Room Air 05/30/17 16:06 98.2 69 22 153/65 95 Room Air Capillary Refill : General Appearance: No Apparent Distress, WD/WN HEENT: PERRL/EOMI Neck: Full Range of Motion, Supple Respiratory: Chest Non Tender, Lungs Clear, Normal Breath Sounds Cardiovascular: Regular Rate, Rhythm Gastrointestinal: normal bowel sounds, tenderness (OVER LOWER ABDOMEN AT PANUS) Neurologic/Psychiatric: Alert, Oriented x3, Normal Mood/Affect Skin: Erythema (AT LOWER ABDOMINAL PANUS - DRY COMPARED TO ADMISSION, PEELING OF SKIN. PT HAS GUTTATE LESIONS ON CHEST) Results Lab Microbiology 05/27/17 Blood Culture - Preliminary, Resulted No growth 05/27/17 Gram Stain - Final, Resulted 05/27/17 Wound Culture - Preliminary, Resulted Streptococcus Pyogenes Grp A Corynebacterium Species Assessment/Plan Assessment/Plan Assess & Plan/Chief Complaint PANNICULITIS CELLULITIS HYPERTENSION PSORIASIS - GUTTATE LESIONS HYPERLIPIDEMIA DEPRESSION ANXIETY ESOPHAGEAL REFLUX PANNICULITIS - CELLULITIS - PT ON IV VANCOMYCIN - CULTURE POSITIVE FOR STREP - WILL TRANSITION TO ORAL AMOXICILLIN ON DISCHARGE. HYPERTENSION - RESTARTED CARVEDILOL, WILL VERIFY HOME MEDICATIONS AND RESTART CHANG-I. PSORIASIS - GUTTATE LESIONS - START IV DOSE OF STEROIDS TODAY - MONITOR SYMPTOMS - RESTARTED PREDNISONE. - HOLD ORAL PREDNISONE TODAY AND TOMORROW - RESTART ON WEDNESDAY. HYPERLIPIDEMIA - HOLD HOME MEDICATIONS. DEPRESSION - RESTARTED SSRI. ANXIETY - ALPRAZOLAM RESTARTED. ESOPHAGEAL REFLUX - RESTART PPI. Clinical Quality Measures DVT/VTE Risk/Contraindication: Risk Factor Score Per Nursin RFS Level Per Nursing on Admit: 3=High Contraindications-Pharm: Other *list below* Other: low plt level and infection in abdomen CHRIS CASTRO MD May 31, 2017 09:08
[2017-05-31] MEDS: LACTOBACILLUS Acidoph/Bulgar (LACTINEX/FLORANEX) TAB PO SCH ×4 (09:21→20:13)
[2017-05-31] MEDS: VITAMIN D3 1,000 UNITS (CHOLECALCIFEROL) TABLET PO SCH (09:21)
[2017-05-31] MEDS: CARVEDILOL 12.5 MG (COREG) TABLET PO SCH ×2 (09:21→20:13)
[2017-05-31] MEDS: VANCOMYCIN 1500 MG/NS 500 ML IVPB IV SCH ×4 (09:21→20:12)
[2017-05-31] MEDS: CYANOCOBALAMIN 500 MCG TAB (VITAMIN B-12) PO SCH (09:21)
[2017-05-31] MEDS: HYDROCHLOROTHIAZIDE 25 MG (HCTZ) TAB PO SCH (09:21)
[2017-05-31] MEDS: TERAZOSIN 5 MG (HYTRIN) CAPSULE PO SCH (09:21)
[2017-05-31] MEDS: toPIRamate 25 MG (TOPAMAX) TAB PO SCH ×2 (09:22→20:13)
[2017-05-31] MEDS: methylPREDNISolone 40 MG/ML (Solu-MEDROL) VIAL IV SCH ×3 (09:22→22:17)
[2017-05-31] MEDS: ENALAPRIL 10 MG (VASOTEC) TAB PO SCH (09:22)
[2017-05-31 15:45] VITALS: BP 167/70
[2017-05-31] MEDS: PANTOPRAZOLE 40 MG (PROTONIX) TAB PO SCH (20:13)
[2017-05-31 20:15] VITALS: BP 187/93
[2017-05-31 21:08] VITALS: BP 186/91
[2017-05-31] MEDS: cloNIDine 0.1 MG (CATAPRES) TAB PO SCH (21:53)
[2017-06-01 00:36] VITALS: BP 178/78
[2017-06-01 04:39] VITALS: BP 155/78
[2017-06-01] MEDS: methylPREDNISolone 40 MG/ML (Solu-MEDROL) VIAL IV SCH ×3 (06:11→22:26)
[2017-06-01] MEDS: KCL 20 MEQ TAB (K-DUR) PO SCH ×2 (06:11→17:40)
[2017-06-01 08:00] VITALS: BP 188/82
[2017-06-01] MEDS: TERAZOSIN 5 MG (HYTRIN) CAPSULE PO SCH (08:22)
[2017-06-01] MEDS: toPIRamate 25 MG (TOPAMAX) TAB PO SCH ×2 (08:22→20:26)
[2017-06-01] MEDS: LACTOBACILLUS Acidoph/Bulgar (LACTINEX/FLORANEX) TAB PO SCH ×4 (08:23→20:26)
[2017-06-01] MEDS: CYANOCOBALAMIN 500 MCG TAB (VITAMIN B-12) PO SCH (08:23)
[2017-06-01] MEDS: ENALAPRIL 10 MG (VASOTEC) TAB PO SCH (08:23)
[2017-06-01] MEDS: cloNIDine 0.1 MG (CATAPRES) TAB PO SCH ×2 (08:23→20:27)
[2017-06-01] MEDS: VITAMIN D3 1,000 UNITS (CHOLECALCIFEROL) TABLET PO SCH (08:23)
[2017-06-01] MEDS: HYDROCHLOROTHIAZIDE 25 MG (HCTZ) TAB PO SCH (08:23)
[2017-06-01] MEDS: VANCOMYCIN 1500 MG/NS 500 ML IVPB IV SCH ×4 (08:24→20:26)
[2017-06-01] MEDS: CARVEDILOL 12.5 MG (COREG) TABLET PO SCH ×2 (08:24→20:27)
[2017-06-01 16:00] VITALS: BP 186/91
[2017-06-01] MEDS ORDERED: cloNIDine 0.1 MG (CATAPRES) TAB PO NR (17:00)
[2017-06-01] MEDS: PANTOPRAZOLE 40 MG (PROTONIX) TAB PO SCH (20:26)
--- NOTE | 2017-06-01 21:28 | Progress Note (SOAP) ---
Subjective Date Seen by Provider: Jun 01, 2017 Time Seen by Provider: 08:30 Subjective/Events-last exam Fwup panniculitis, Hypertension, GERD, guttate psoriasis. Patient states feeling better. Wants to get up and shower. Objective Exam Vital Signs Date Time Temp Pulse Resp B/P (MAP) Pulse Ox O2 Delivery O2 Flow Rate FiO2 06/01/17 16:00 97.6 57 20 186/91 98 Room Air 06/01/17 09:00 Room Air 06/01/17 08:00 96.4 64 18 188/82 99 Room Air 06/01/17 04:39 95.7 76 16 155/78 97 Room Air 06/01/17 00:36 97.6 68 17 178/78 97 Room Air I & O 06/02/17 07:00 Intake Total 2260 ml Output Total 1100 ml Balance 1160 ml Capillary Refill : Less Than 3 Seconds General Appearance: No Apparent Distress Respiratory: Lungs Clear Cardiovascular: Regular Rate, Rhythm Gastrointestinal: normal bowel sounds, soft Extremity: Non Tender, No Calf Tenderness, No Pedal Edema Neurologic/Psychiatric: Alert, Oriented x3 Skin: Erythema (to lower abdomen/pannus with scaling skin overtop) Results Lab Microbiology 05/27/17 Blood Culture - Preliminary, Resulted No growth 05/27/17 Gram Stain - Final, Complete 05/27/17 Wound Culture - Final, Complete Streptococcus Pyogenes Grp A Corynebacterium Species Assessment/Plan Assessment/Plan Assess & Plan/Chief Complaint 1. Panniculitis--continue antibiotics, would add diflucan as may be fungal component as well 2. GERD--back on PPI 3. Hypertension--back on home meds 4. Guttate psoriasis--IV solumedrol added Clinical Quality Measures DVT/VTE Risk/Contraindication: Risk Factor Score Per Nursin RFS Level Per Nursing on Admit: 3=High Contraindications-Pharm: Other *list below* Other: low plt level and infection in abdomen STEFAN WOLFF DO Jun 01, 2017 9:28 pm
[2017-06-01] MEDS ORDERED: fluCOnazole (DIFLUCAN) 100 MG TAB PO ONE (21:30)
[2017-06-02] VITALS (7 sets, daily range): BP systolic 160–212; BP diastolic 70–106
[2017-06-02] MEDS ORDERED: cloNIDine 0.1 MG (CATAPRES) TAB PO ONE ×2 (01:00→05:30)
[2017-06-02] MEDS: methylPREDNISolone 40 MG/ML (Solu-MEDROL) VIAL IV SCH (05:38)
[2017-06-02] MEDS: KCL 20 MEQ TAB (K-DUR) PO SCH (05:38)
[2017-06-02] MEDS: predniSONE 5 MG TAB PO SCH (08:13)
[2017-06-02] MEDS: VANCOMYCIN 1500 MG/NS 500 ML IVPB IV SCH ×2 (08:13)
[2017-06-02] MEDS: VITAMIN D3 1,000 UNITS (CHOLECALCIFEROL) TABLET PO SCH (08:13)
[2017-06-02] MEDS: CARVEDILOL 12.5 MG (COREG) TABLET PO SCH (08:14)
[2017-06-02] MEDS: toPIRamate 25 MG (TOPAMAX) TAB PO SCH (08:14)
[2017-06-02] MEDS: ENALAPRIL 10 MG (VASOTEC) TAB PO SCH (08:15)
[2017-06-02] MEDS: TERAZOSIN 5 MG (HYTRIN) CAPSULE PO SCH (08:15)
[2017-06-02] MEDS: HYDROCHLOROTHIAZIDE 25 MG (HCTZ) TAB PO SCH (08:15)
[2017-06-02] MEDS: CYANOCOBALAMIN 500 MCG TAB (VITAMIN B-12) PO SCH (08:15)
[2017-06-02] MEDS: LACTOBACILLUS Acidoph/Bulgar (LACTINEX/FLORANEX) TAB PO SCH ×2 (08:15→13:19)
[2017-06-02] MEDS: cloNIDine 0.1 MG (CATAPRES) TAB PO SCH (08:18)
[2017-06-02] MEDS ORDERED: cloNIDine 0.2 MG (CATAPRES) TAB PO SCH (09:00)
[2017-06-02] MEDS ORDERED: fluCOnazole (DIFLUCAN) 100 MG TAB PO SCH (09:00)
[2017-06-02] MEDS ORDERED: AMOX500T2 PO (09:04)
[2017-06-02] MEDS ORDERED: ACID1TAB PO (09:04)
[2017-06-02] MEDS ORDERED: CLON0.1T PO (09:04)
[2017-06-02] MEDS ORDERED: FLUC100T6 PO (09:04)
--- NOTE | 2017-06-02 09:07 | Discharge Inst-Complex ---
PDI Med Rec & Follow Up Appt. New Medications: Amoxicillin (Amoxicillin) 500 Mg Tablet 500 MG PO TID for 7 Days, #21 TAB Clonidine HCl (Clonidine HCl) 0.1 Mg Tablet 0.1 MG PO BID PRN for HYPERTENSION, #30 TAB IF SYSTOLIC BLOOD PRESSURE IS AT OR ABOVE 170 Fluconazole (Fluconazole) 100 Mg Tablet 100 MG PO DAILY for 6 Days, #6 TAB L. Acidophilus/Bulgaricus (Floranex Tablet) 1 Each Tablet 1 TAB.CHEW PO QID for 10 Days, #40 TAB Continued Medications: Ascorbic Acid (Vitamin C) 1,000 Mg Tablet 1000 MG PO DAILY, TAB Biotin (Biotin) 1,000 Mcg Tablet 1000 MCG PO DAILY, TAB Carvedilol (Carvedilol) 25 Mg Tablet 25 MG PO BID, TAB Cholecalciferol (Vitamin D3) (Vitamin D3) 2,000 Unit Capsule 2000 UNIT PO DAILY, CAP Colestipol HCl (Colestipol HCl) 1 Gm Tablet 1 GM PO DAILY, TAB Cyanocobalamin (Vitamin B-12) (Vitamin B-12) 1,000 Mcg Tablet 1000 MCG PO DAILY, TAB Enalapril Maleate (Enalapril Maleate) 20 Mg Tablet 20 MG PO DAILY, TAB Escitalopram Oxalate (Escitalopram Oxalate) 20 Mg Tablet 20 MG PO DAILY, TAB Ferrous Sulfate (Iron) 325 Mg Tablet 325 MG PO DAILY, TAB Hydrochlorothiazide (Hydrochlorothiazide) 25 Mg Tablet 25 MG PO DAILY, TAB Ibuprofen (Ibuprofen) 200 Mg Tablet 400 MG PO DAILY PRN for PAIN-MILD, TAB Magnesium Chloride (Slow-Mag) 64 Mg Tab 64 MG PO BID, TAB Omeprazole (Omeprazole) 40 Mg Capsule.dr 40 MG PO HS, CAP Potassium Chloride (Klor-Con M20) 20 Meq Tab.er.prt 40 MEQ PO BID, TAB TAKES 2 (20MEQ) TABLETS Prednisone (Prednisone) 5 Mg Tablet 5 MG PO DAILY, TAB Terazosin HCl (Terazosin HCl) 5 Mg Capsule 5 MG PO DAILY, CAP Topiramate (Topiramate) 50 Mg Tablet 50 MG PO BID, TAB Vitamin E Acetate (Vitamin E) 400 Unit Capsule 400 UNIT PO BID, CAP Prescription: Transmitted to Pharmacy Activity, Diet and PDI Resume Normal Activity: Yes Discharge Diet: Regular Diet Drink 6-8 Glasses of Fluid/Day: Yes Symptoms to Reoprt to : Appetite Changes, Pain/Pressure in Chest, Shortness of Breath For Problems or Questions: Contact Your Physician, Go to Emergency Room Infection Signs and Symptoms: Increased Redness, Temperature Above 101 F CHRIS CASTRO MD Jun 02, 2017 09:07
--- NOTE | 2017-06-02 09:10 | Discharge Summary ---
Diagnosis/Chief Complaint Date of Admission May 27, 2017 at 19:02 Date of Discharge Discharge Date: Jun 02, 2017 Discharge Time: 1430 Admission Diagnosis Admission Diagnosis PANNICULITIS CELLULITIS HYPERTENSION PSORIASIS HYPERLIPIDEMIA DEPRESSION ANXIETY ESOPHAGEAL REFLUX Discharge Diagnosis PANNICULITIS CELLULITIS HYPERTENSION PSORIASIS HYPERLIPIDEMIA DEPRESSION ANXIETY ESOPHAGEAL REFLUX Reason Hospital Visit PT PRESENTED HERSELF TO THE OFFICE TODAY WITH COMPLAINT OF A RASH IN HER GROIN, UNDER THE FOLD IN HER LOWER ABDOMINAL REGION WELL IN HER PUBIC AREA. SHE STATES THAT THE RASH STARTED ON 05/18/17 AND HAS GOTTEN PROGRESSIVELY WORSE. SHE HAD MEDICATION THAT SHE WAS USING CLOBETASOL AND KETOCONAZOLE CREAM AND NYSTATIN POWDER. SHE ALSO TOOK 3 DIFLUCAN PILLS. SHE REPORTS THAT SHE HAS BEEN HAVING CHILLS, NO FEVERS, BUT HAS BEEN HAVING BODY ACHES AND FATIGUED. SHE DID NOT WANT TO BE ADMITTED, BUT WE TALKED HER INTO ADMISSION. Discharge Summary Discharge Physical Examination Allergies: Coded Allergies: bacitracin (Verified Allergy, Unknown, 05/28/17) neomycin (Verified Allergy, Unknown, 05/28/17) polymyxin B (Verified Allergy, Unknown, 05/28/17) Vitals & I&Os Vital Signs Date Time Temp Pulse Resp B/P (MAP) Pulse Ox O2 Delivery O2 Flow Rate FiO2 06/02/17 04:00 96.2 64 18 187/93 96 Room Air General Appearance: Alert, Oriented X3, Cooperative, Mild Distress HEENT: Atraumatic, PERRLA Respiratory: Clear to Auscultation, Normal Air Movement Cardiovascular: Regular Rate Abdominal: Normal Bowel Sounds, Soft Extremities: No Clubbing Skin: Other (ERYTHEMA OF ABDOMEN - IMPROVED FROM ADMISSION.) Neuro: Cranial Nerves 3-12 NL Psych/Mental Status: Mental Status NL, Mood NL Hospital Course PANNICULITIS CELLULITIS HYPERTENSION PSORIASIS - GUTTATE LESIONS HYPERLIPIDEMIA DEPRESSION ANXIETY ESOPHAGEAL REFLUX PANNICULITIS - CELLULITIS - PT ON IV VANCOMYCIN - CULTURE POSITIVE FOR STREP - WILL TRANSITION TO ORAL AMOXICILLIN TO BE STARTED TONIGHT. HYPERTENSION - RESTARTED CARVEDILOL, CHANG-I. - PRN CLONIDINE FOR SYSTOLIC PRESSURE OVER 170 PSORIASIS - GUTTATE LESIONS - STARTED IV DOSE OF STEROIDS - IMPROVED SLIGHTLY ON CHEST - NOW ON BACK - RESTARTED PREDNISONE HYPERLIPIDEMIA - HELD HOME MEDICATIONS INPATIENT - RESTART OUTPATIENT. DEPRESSION - RESTARTED SSRI. ANXIETY - ALPRAZOLAM RESTARTED. ESOPHAGEAL REFLUX - RESTART PPI. Discharge Condition at discharge IMPROVED Instructions to patient/family Please see electronic discharge instructions given to patient. Discharge Medications Reviewed and agree with Discharge Medication list on patient's Discharge Instruction sheet Clinical Quality Measures DVT/VTE Risk/Contraindication: Risk Factor Score Per Nursin RFS Level Per Nursing on Admit: 3=High Contraindications-Pharm: Other *list below* Other: low plt level and infection in abdomen CHRIS CASTRO MD Jun 02, 2017 09:09
[2017-06-02] MEDS ORDERED: ALPRAZolam 0.25 MG (XANAX) TAB PO NR (09:42)
== END 2017-06-02 16:08 | disposition home or self-care (01) | DRG 603 ==
LOC: 4TH 19:02
PROVIDERS: ADMIT Family Medicine; ATTEND Family Medicine
DX: L03.311 Cellulitis of abdominal wall (principal); M79.3 Panniculitis, unspecified; L40.4 Guttate psoriasis; D61.818 Other pancytopenia; I10 Essential (primary) hypertension; E11.9 Type 2 diabetes mellitus without complications; F41.9 Anxiety disorder, unspecified; F32.9 Major depressive disorder, single episode, unspecified; K74.60 Unspecified cirrhosis of liver; E78.5 Hyperlipidemia, unspecified; K21.9 Gastro-esophageal reflux disease without esophagitis
CPT/HCPCS: 36415; 80053; 80202; 82962; 83605; 85025; 85652; 87040; 87070; 87205

== ENCOUNTER 2017-10-11 14:41 | Outpatient (RCR) | payer BC ==
[2017-10-06 15:55] LABS: BASOPHILS % (AUTO) 0 % (0-10); EOSINOPHILS % (AUTO) 1 % (0-10); HEMATOCRIT 36 % (35-52); HEMOGLOBIN 12.4 G/DL (11.5-16.0); LYMPHOCYTES # (AUTO) 0.4 X 10^3 (1.0-4.0); LYMPHOCYTES % (AUTO) 20 % (12-44); MEAN CORPUSCULAR HEMOGLOBIN 28 PG (25-34); MEAN CORPUSCULAR HGB CONC 34 G/DL (32-36); MEAN CORPUSCULAR VOLUME 80 FL (80-99); MEAN PLATELET VOLUME 9.6 FL (7.4-10.4); MONOCYTES # (AUTO) 0.1 X 10^3 (0.0-1.0); MONOCYTES % (AUTO) 6 % (0-12); NEUTROPHILS # (AUTO) 1.4 X 10^3 (1.8-7.8); NEUTROPHILS % (AUTO) 73 % (42-75); PLATELET COUNT 62 10^3/uL (130-400); RED CELL DISTRIBUTION WIDTH 15.3 % (10.0-14.5); WHITE BLOOD COUNT 1.9 10^3/uL (4.3-11.0)
[2017-10-06 16:20] LABS: ALANINE AMINOTRANSFERASE 31 U/L (0-55); ALBUMIN 3.7 GM/DL (3.2-4.5); ALKALINE PHOSPHATASE 128 U/L (40-136); BILIRUBIN,TOTAL 1.9 MG/DL (0.1-1.0); BUN/CREATININE RATIO 13; CALCIUM 9.4 MG/DL (8.5-10.1); CARBON DIOXIDE 26 MMOL/L (21-32); CHLORIDE 102 MMOL/L (98-107); CREATININE SERUM 0.71 MG/DL (0.60-1.30); GFR ESTIMATED > 60; GLUCOSE 231 MG/DL (70-105); POTASSIUM 4.4 MMOL/L (3.6-5.0); SODIUM 137 MMOL/L (135-145); TOTAL PROTEIN 7.3 GM/DL (6.4-8.2)
[~2017-10-11 14:41] MED LIST changes: +ACID1TAB PO; +AMOX500T2 PO; +ASCO10006 PO; +CHOL20003 PO; +CLON0.1T PO; +CYAN10006 PO; +ENAL20TA PO; +ESCI20TA45 PO; +FERR-84 PO; +FLUC100T6 PO; +HYDR25TA4 PO; +IBUP-2055 PO; +NF-MAG64T PO; +NFBIOT1000 PO; +OMEP40CA36 PO; +POTA20TA8 PO; +PRED5TAB PO; +TERA5CAP3 PO; +TOPI50TA13 PO; +VITA400C60 PO
== END 2018-01-04 | disposition home or self-care (01) ==
LOC: ONC 14:41
PROVIDERS: ATTEND Internal Medicine Hematology & Oncology
DX: D61.818 Other pancytopenia (principal); E11.9 Type 2 diabetes mellitus without complications; I10 Essential (primary) hypertension; M06.9 Rheumatoid arthritis, unspecified; Z79.899 Other long term (current) drug therapy
CPT/HCPCS: 36415; 80053; 82728; 85025; 99213

== ENCOUNTER 2018-06-13 14:45 | Outpatient (RCR) | payer BC ==
[2018-06-07 14:09] LABS: BASOPHILS % (AUTO) 0 % (0-10); EOSINOPHILS % (AUTO) 1 % (0-10); HEMATOCRIT 35 % (35-52); HEMOGLOBIN 12.1 G/DL (11.5-16.0); LYMPHOCYTES # (AUTO) 0.6 X 10^3 (1.0-4.0); LYMPHOCYTES % (AUTO) 18 % (12-44); MEAN CORPUSCULAR HEMOGLOBIN 30 PG (25-34); MEAN CORPUSCULAR HGB CONC 35 G/DL (32-36); MEAN CORPUSCULAR VOLUME 86 FL (80-99); MEAN PLATELET VOLUME 11.3 FL (7.4-10.4); MONOCYTES # (AUTO) 0.3 X 10^3 (0.0-1.0); MONOCYTES % (AUTO) 9 % (0-12); NEUTROPHILS # (AUTO) 2.4 X 10^3 (1.8-7.8); NEUTROPHILS % (AUTO) 72 % (42-75); RED BLOOD COUNT 4.08 10^6/uL (4.35-5.85); RED CELL DISTRIBUTION WIDTH 14.6 % (10.0-14.5); WHITE BLOOD COUNT 3.4 10^3/uL (4.3-11.0)
[2018-06-07 14:11] LABS: PLATELET COUNT 50 10^3/uL (130-400)
[2018-06-07 14:24] LABS: ALANINE AMINOTRANSFERASE 37 U/L (0-55); ALKALINE PHOSPHATASE 94 U/L (40-136); BILIRUBIN,TOTAL 1.7 MG/DL (0.1-1.0); BUN/CREATININE RATIO 22; CALCIUM 9.6 MG/DL (8.5-10.1); CARBON DIOXIDE 23 MMOL/L (21-32); CHLORIDE 103 MMOL/L (98-107); CREATININE SERUM 0.86 MG/DL (0.60-1.30); GFR ESTIMATED > 60; GLUCOSE 204 MG/DL (70-105); POTASSIUM 4.7 MMOL/L (3.6-5.0); SODIUM 135 MMOL/L (135-145); TOTAL PROTEIN 7.6 GM/DL (6.4-8.2)
[2018-06-13 15:55] LABS: BILIRUBIN,URINE NEGATIVE (NEGATIVE); CLARITY,URINE CLEAR; COLOR,URINE YELLOW; GLUCOSE, URINE (UA) NEGATIVE (NEGATIVE); KETONES,URINE NEGATIVE (NEGATIVE); LEUKOCYTE ESTERASE ,URINE 1+ (NEGATIVE); NITRITE,URINE NEGATIVE (NEGATIVE); PH,URINE 5 (5-9); PROTEIN,URINE NEGATIVE (NEGATIVE); UROBILINOGEN,URINE NORMAL (NORMAL)
[2018-06-13 16:06] LABS: BACTERIA,URINE FEW /HPF; WBC,URINE 0-2 /HPF
[2018-06-13 16:56] LABS: WHITE BLOOD CELL CASTS, URINE N /LPF
== END 2018-09-05 | disposition home or self-care (01) ==
LOC: ONC 14:45
PROVIDERS: ATTEND Internal Medicine Hematology & Oncology
DX: D61.818 Other pancytopenia (principal); E11.9 Type 2 diabetes mellitus without complications; I10 Essential (primary) hypertension; M06.9 Rheumatoid arthritis, unspecified; Z79.899 Other long term (current) drug therapy
CPT/HCPCS: 80053; 81000; 82105; 82728; 85025; 99213

== ENCOUNTER 2019-06-13 14:59 | Outpatient (RCR) | payer BC ==
[~2019-06-13 14:59] MED LIST changes: +CYAN-41 PO; -CYAN10006 PO; -IBUP-2055 PO; +IBUP-2473 PO; +OMEP40CA27 PO; -OMEP40CA36 PO
[2019-06-13 15:15] LABS: BASOPHILS % (AUTO) 0 % (0-10); EOSINOPHILS % (AUTO) 2 % (0-10); HEMATOCRIT 34 % (35-52); HEMOGLOBIN 11.3 G/DL (11.5-16.0); LYMPHOCYTES # (AUTO) 0.4 X 10^3 (1.0-4.0); LYMPHOCYTES % (AUTO) 16 % (12-44); MEAN CORPUSCULAR HEMOGLOBIN 27 PG (25-34); MEAN CORPUSCULAR HGB CONC 33 G/DL (32-36); MEAN CORPUSCULAR VOLUME 83 FL (80-99); MEAN PLATELET VOLUME 9.6 FL (7.4-10.4); MONOCYTES # (AUTO) 0.1 X 10^3 (0.0-1.0); MONOCYTES % (AUTO) 4 % (0-12); NEUTROPHILS # (AUTO) 1.9 X 10^3 (1.8-7.8); NEUTROPHILS % (AUTO) 78 % (42-75); PLATELET COUNT 55 10^3/uL (130-400); WHITE BLOOD COUNT 2.5 10^3/uL (4.3-11.0)
[2019-06-13 15:34] LABS: ALANINE AMINOTRANSFERASE 40 U/L (0-55); ALBUMIN 3.7 GM/DL (3.2-4.5); ALKALINE PHOSPHATASE 139 U/L (40-136); BILIRUBIN,TOTAL 1.7 MG/DL (0.1-1.0); BUN/CREATININE RATIO 17; CALCIUM 9.4 MG/DL (8.5-10.1); CARBON DIOXIDE 23 MMOL/L (21-32); CHLORIDE 103 MMOL/L (98-107); CREATININE SERUM 0.72 MG/DL (0.60-1.30); GFR ESTIMATED > 60; GLUCOSE 239 MG/DL (70-105); POTASSIUM 4.3 MMOL/L (3.6-5.0); SODIUM 138 MMOL/L (135-145); TOTAL PROTEIN 7.2 GM/DL (6.4-8.2)
== END 2019-09-11 | disposition home or self-care (01) ==
LOC: ONC 14:59
PROVIDERS: ATTEND Internal Medicine Hematology & Oncology
DX: D61.818 Other pancytopenia (principal); E11.9 Type 2 diabetes mellitus without complications; I10 Essential (primary) hypertension; M06.9 Rheumatoid arthritis, unspecified; Z79.899 Other long term (current) drug therapy
CPT/HCPCS: 36415; 80053; 82105; 82728; 85025; 99213

== ENCOUNTER → 2020-06-06 | Outpatient (CLI) | payer BC ==
[~2020-06-06] MED LIST changes: +ASCO100024 PO; -ASCO10006 PO; -ENAL20TA PO; +ENAL20TA16 PO
[2020-06-06 14:07] LABS: BASOPHILS % (AUTO) 1 % (0-10); EOSINOPHILS % (AUTO) 1 % (0-10); HEMATOCRIT 31 % (35-52); HEMOGLOBIN 10.1 g/dL (11.5-16.0); LYMPHOCYTES # (AUTO) 0.3 10^3/uL (1.0-4.0); LYMPHOCYTES % (AUTO) 14 % (12-44); MEAN CORPUSCULAR HEMOGLOBIN 28 pg (25-34); MEAN CORPUSCULAR HGB CONC 33 g/dL (32-36); MEAN CORPUSCULAR VOLUME 84 fL (80-99); MONOCYTES # (AUTO) 0.1 10^3/uL (0.0-1.0); MONOCYTES % (AUTO) 5 % (0-12); NEUTROPHILS # (AUTO) 1.5 10^3/uL (1.8-7.8); NEUTROPHILS % (AUTO) 80 % (42-75); PLATELET COUNT 41 10^3/uL (130-400); WHITE BLOOD COUNT 1.8 10^3/uL (4.3-11.0)
[2020-06-06 14:23] LABS: ALANINE AMINOTRANSFERASE 33 U/L (0-55); ALBUMIN 3.6 GM/DL (3.2-4.5); ALKALINE PHOSPHATASE 111 U/L (40-136); BILIRUBIN,TOTAL 2.7 MG/DL (0.1-1.0); BUN/CREATININE RATIO 23; CALCIUM 8.7 MG/DL (8.5-10.1); CARBON DIOXIDE 25 MMOL/L (21-32); CHLORIDE 100 MMOL/L (98-107); CREATININE SERUM 0.71 MG/DL (0.60-1.30); GFR ESTIMATED > 60; GLUCOSE 275 MG/DL (70-105); POTASSIUM 3.9 MMOL/L (3.6-5.0); SODIUM 135 MMOL/L (135-145); TOTAL PROTEIN 6.9 GM/DL (6.4-8.2)
== END ==
LOC: ONC 13:45
PROVIDERS: ATTEND Internal Medicine Hematology & Oncology
DX: E61.1 Iron deficiency (principal); D61.818 Other pancytopenia; K74.60 Unspecified cirrhosis of liver
CPT/HCPCS: 80053; 82105; 82728; 85025

== ENCOUNTER 2020-06-10 15:09 | Outpatient (RCR) | payer BC, OTHER ==
[~2020-06-10 15:09] MED LIST changes: +CLN.1T PO; -CLON0.1T PO
== END 2020-09-08 | disposition home or self-care (01) ==
LOC: ONC 15:09
PROVIDERS: ATTEND Internal Medicine Hematology & Oncology
DX: D61.818 Other pancytopenia (principal); E11.9 Type 2 diabetes mellitus without complications; I10 Essential (primary) hypertension; M06.9 Rheumatoid arthritis, unspecified; D50.9 Iron deficiency anemia, unspecified; K74.60 Unspecified cirrhosis of liver; Z79.899 Other long term (current) drug therapy
CPT/HCPCS: 99213

== ENCOUNTER → 2020-07-01 | Outpatient (CLI) | payer BC ==
[2020-07-01 16:47] LABS: BASOPHILS % (AUTO) 1 % (0-10); EOSINOPHILS % (AUTO) 2 % (0-10); HEMATOCRIT 30 % (35-52); HEMOGLOBIN 9.8 g/dL (11.5-16.0); LYMPHOCYTES # (AUTO) 0.4 10^3/uL (1.0-4.0); LYMPHOCYTES % (AUTO) 19 % (12-44); MEAN CORPUSCULAR HEMOGLOBIN 27 pg (25-34); MEAN CORPUSCULAR HGB CONC 32 g/dL (32-36); MEAN CORPUSCULAR VOLUME 83 fL (80-99); MEAN PLATELET VOLUME 10.1 fL (9.0-12.2); MONOCYTES # (AUTO) 0.2 10^3/uL (0.0-1.0); MONOCYTES % (AUTO) 9 % (0-12); NEUTROPHILS # (AUTO) 1.3 10^3/uL (1.8-7.8); NEUTROPHILS % (AUTO) 70 % (42-75); PLATELET COUNT 41 10^3/uL (130-400); WHITE BLOOD COUNT 1.9 10^3/uL (4.3-11.0)
[2020-07-01 17:09] LABS: ALBUMIN 3.7 GM/DL (3.2-4.5)
[2020-07-01 17:10] LABS: CHLORIDE 101 MMOL/L (98-107); POTASSIUM 3.6 MMOL/L (3.6-5.0); SODIUM 137 MMOL/L (135-145)
[2020-07-01 17:11] LABS: CALCIUM 9.2 MG/DL (8.5-10.1)
[2020-07-01 17:12] LABS: GLUCOSE 167 MG/DL (70-105); TOTAL PROTEIN 6.8 GM/DL (6.4-8.2)
[2020-07-01 17:13] LABS: CARBON DIOXIDE 25 MMOL/L (21-32)
[2020-07-01 17:14] LABS: BILIRUBIN,TOTAL 3.3 MG/DL (0.1-1.0)
[2020-07-01 17:16] LABS: ALKALINE PHOSPHATASE 116 U/L (40-136); CREATININE SERUM 0.67 MG/DL (0.60-1.30); GFR ESTIMATED > 60
[2020-07-01 17:17] LABS: BUN/CREATININE RATIO 13
[2020-07-01 17:19] LABS: ALANINE AMINOTRANSFERASE 29 U/L (0-55)
== END ==
LOC: CARD 16:19
PROVIDERS: ATTEND Nurse Practitioner Family
DX: R07.9 Chest pain, unspecified (principal); R06.00 Dyspnea, unspecified
CPT/HCPCS: 36415; 80053; 83036; 84484; 85025; 93005

== ENCOUNTER → 2020-07-02 | Outpatient (CLI) | payer BC | LOC: LABNPT 08:52 | PROVIDERS: ATTEND Family Medicine | DX: U07.1 COVID-19 (principal) | CPT/HCPCS: 87635 ==

== ENCOUNTER 2021-05-01 09:13 | Outpatient (CLI) | payer BC ==
[~2021-05-01] VITALS: Ht 154.9 cm; Wt 90.8 kg
[~2021-05-01 09:13] MED LIST changes: +ESCI20TA39 PO; -ESCI20TA45 PO; -OMEP40CA27 PO; +OMEP40CA6 PO; -TERA5CAP3 PO
[2021-05-01] MEDS ORDERED: diphenhydrAMINE 50 MG/ML INJ (BENADRYL) IV PRN (09:15)
[2021-05-01] MEDS ORDERED: ACETAMINOPHEN 500 MG TAB (TYLENOL) PO PRN (09:15)
[2021-05-01] MEDS ORDERED: CASIRIVIMAB/IMDEVIMAB 1,200 MG in NS (IVPB) 250 ML IV ONE (09:15)
[2021-05-01] MEDS ORDERED: ONDANSETRON 4 MG/2 ML (SDV) Z0FRAN IV PRN (09:15)
[2021-05-01] MEDS ORDERED: EPINEPHrine INJECTION 1 MG/ML AMP IM PRN (09:15)
[2021-05-01 09:17] VITALS: BP 97/37
[2021-05-01 09:18] VITALS: BP 97/37
[2021-05-01 10:33] VITALS: BP 79/38
== END 2021-05-01 10:55 | disposition home or self-care (01) ==
LOC: INFUSION 09:13
PROVIDERS: ATTEND Nurse Practitioner Family
DX: Z23 Encounter for immunization (principal); U07.1 COVID-19

== ENCOUNTER 2021-05-14 14:30 | Outpatient (RCR) | payer BC ==
[~2021-05-14 14:30] MED LIST changes: +POTA-169 PO; -POTA20TA8 PO
[2021-05-14 14:52] LABS: BASOPHILS % (AUTO) 0 % (0-10); HEMOGLOBIN 10.8 g/dL (11.5-16.0); PLATELET COUNT 42 10^3/uL (130-400)
[2021-05-14 14:53] LABS: EOSINOPHILS % (AUTO) 2 % (0-10); HEMATOCRIT 33 % (35-52); LYMPHOCYTES # (AUTO) 0.4 10^3/uL (1.0-4.0); LYMPHOCYTES % (AUTO) 15 % (12-44); MEAN CORPUSCULAR HEMOGLOBIN 29 pg (25-34); MEAN CORPUSCULAR HGB CONC 33 g/dL (32-36); MEAN CORPUSCULAR VOLUME 89 fL (80-99); MONOCYTES % (AUTO) 7 % (0-12); NEUTROPHILS # (AUTO) 1.9 10^3/uL (1.8-7.8); NEUTROPHILS % (AUTO) 76 % (42-75); WHITE BLOOD COUNT 2.4 10^3/uL (4.3-11.0)
[2021-05-14 14:54] LABS: MONOCYTES # (AUTO) 0.2 10^3/uL (0.0-1.0)
[2021-05-14 15:13] LABS: ALBUMIN 3.6 GM/DL (3.2-4.5); BILIRUBIN,TOTAL 1.5 MG/DL (0.1-1.0); CALCIUM 9.4 MG/DL (8.5-10.1); CREATININE SERUM 0.76 MG/DL (0.60-1.30); POTASSIUM 4.4 MMOL/L (3.6-5.0); TOTAL PROTEIN 6.9 GM/DL (6.4-8.2)
== END 2021-08-12 | disposition home or self-care (01) ==
LOC: ONC 14:30
PROVIDERS: ATTEND Internal Medicine Hematology & Oncology
DX: D61.818 Other pancytopenia (principal); E11.9 Type 2 diabetes mellitus without complications; I10 Essential (primary) hypertension; M06.9 Rheumatoid arthritis, unspecified; D50.9 Iron deficiency anemia, unspecified; K74.60 Unspecified cirrhosis of liver; F41.9 Anxiety disorder, unspecified; Z79.899 Other long term (current) drug therapy
CPT/HCPCS: 80053; 82105; 82728; 85025; G0463; 99213

== ENCOUNTER 2022-05-21 14:59 | Outpatient (RCR) | payer BC ==
[~2022-05-21 14:59] MED LIST changes: +FLUC100T10 PO; -FLUC100T6 PO
== END 2022-05-21 16:08 | disposition home or self-care (01) ==
PROVIDERS: ATTEND Neurological Surgery
DX: M48.061 Spinal stenosis, lumbar region without neurogenic claudication (principal)

== ENCOUNTER 2022-10-14 19:02 | Emergency (ER) | payer BC ==
[~2022-10-14] VITALS: Ht 152.4 cm; Wt 104.3 kg
[2022-10-14 20:16] LABS: HEMOGLOBIN 11.2 g/dL (11.5-16.0); LYMPHOCYTES % (AUTO) 15 % (12-44); MONOCYTES # (AUTO) 0.3 10^3/uL (0.0-1.0)
[2022-10-14 20:18] LABS: BASOPHILS % (AUTO) 0 % (0-10); EOSINOPHILS % (AUTO) 1 % (0-10); HEMATOCRIT 33 % (35-52); LYMPHOCYTES # (AUTO) 0.5 10^3/uL (1.0-4.0); MEAN CORPUSCULAR HEMOGLOBIN 30 pg (25-34); MEAN CORPUSCULAR HGB CONC 34 g/dL (32-36); MEAN CORPUSCULAR VOLUME 88 fL (80-99); MEAN PLATELET VOLUME 11.7 fL (9.0-12.2); MONOCYTES % (AUTO) 11 % (0-12); NEUTROPHILS # (AUTO) 2.1 10^3/uL (1.8-7.8); NEUTROPHILS % (AUTO) 73 % (42-75); WHITE BLOOD COUNT 2.9 10^3/uL (4.3-11.0)
[2022-10-14 20:22] LABS: PLATELET COUNT 35 10^3/uL (130-400)
--- NOTE | 2022-10-14 20:33 | Diagnostic Imaging Report ---
CLINICAL INDICATION: Patient with chest pain. EXAM: Portable chest x-ray upright view. COMPARISON: Chest x-ray dated 07/19/2015. FINDINGS: Lungs/pleura: There is mild bibasilar atelectasis. Lungs are clear. There is no pneumothorax. There is no pleural effusion. Mediastinum: Unremarkable. Pulmonary vasculature: Unremarkable. Heart: Unremarkable. Bones/extrathoracic soft tissue: There are degenerative spurs involving the thoracic spine. IMPRESSION: There is no radiographic evidence of acute cardiopulmonary process. There is mild bibasilar atelectasis. Dictated by: Dictated on workstation # [id number]
[2022-10-14 20:34] LABS: ALANINE AMINOTRANSFERASE 30 U/L (0-55); ALBUMIN 3.3 GM/DL (3.2-4.5); ALKALINE PHOSPHATASE 176 U/L (40-136); BILIRUBIN,TOTAL 1.8 MG/DL (0.1-1.0); BUN/CREATININE RATIO 24; CALCIUM 9.3 MG/DL (8.5-10.1); CARBON DIOXIDE 24 MMOL/L (21-32); CHLORIDE 99 MMOL/L (98-107); CREATININE SERUM 0.79 MG/DL (0.60-1.30); GFR ESTIMATED 87; GLUCOSE 162 MG/DL (70-105); SODIUM 131 MMOL/L (135-145)
--- NOTE | 2022-10-14 21:07 | ED Cardiac General ---
History of Present Illness General Chief Complaint: Chest Pain Stated Complaint: CHEST HEAVINESS Nursing Triage Note: PT AMB TO [facility] WITH COMPLAINTS OF A HEAVY CHEST SINCE August ALONG WITH SINUS INFECTION AND SOB. PT WAS SINCE AT [facility] AND HAS HAD NO IMPROVEMENT. Source: patient Exam Limitations: no limitations History of Present Illness Date Seen by Provider: Oct 14, 2022 Time Seen by Provider: 19:50 Initial Comments 57-year-old female presents emerged department today for tightness in her left lower chest and some shortness of breath. Symptoms have been present since 19 September after she had some sort of viral illness. The remainder of her symptoms have resolved however she continues to have a tightness in her left lower chest and shortness of breath. No aggravating or alleviating factors. The tightness can be reproduced with palpation to her left anterior chest. She does not have any history of cardiac disease. She denies any fevers or chills. No vomiting. No abdominal pain or changes in bowel or bladder habits. Allergies and Home Medications Allergies Coded Allergies: bacitracin (Verified Allergy, Unknown, 05/28/17) neomycin (Verified Allergy, Unknown, 05/28/17) polymyxin B (Verified Allergy, Unknown, 05/28/17) Patient Home Medication List Home Medication List Reviewed: Yes Ascorbic Acid (Vitamin C) 1,000 Mg Tablet, 1,000 MG PO DAILY, (Reported) Entered as Reported by: BENJAMIN BOLTON on 05/28/171006 Biotin (Biotin) 1,000 Mcg Tablet, 1,000 MCG PO DAILY, (Reported) Entered as Reported by: BENJAMIN BOLTON on 05/28/17 1007 Carvedilol (Carvedilol) 25 Mg Tablet, 25 MG PO BID, (Reported) Entered as Reported by: BENJAMIN BOLTON on 05/28/17 1007 Cholecalciferol (Vitamin D3) (Vitamin D3) 2,000 Unit Capsule, 2,000 UNIT PO DAILY, (Reported) Entered as Reported by: BENJAMIN BOLTON on 05/28/17 1007 Clonidine HCl (Clonidine HCl) 0.1 Mg Tablet, 0.1 MG PO BID PRN for HYPERTENSION Prescribed by: CHRIS CASTRO on 06/02/17 0904 Colestipol HCl (Colestipol HCl) 1 Gm Tablet, 1 GM PO DAILY, (Reported) Entered as Reported by: BENJAMIN BOLTON on 05/28/171006 Cyanocobalamin (Vitamin B-12) (Vitamin B-12) 1,000 Mcg Tablet, 1,000 MCG PO DAILY, (Reported) Entered as Reported by: BENJAMIN BOLTON on 05/28/171006 Enalapril Maleate (Enalapril Maleate) 20 Mg Tablet, 20 MG PO DAILY, (Reported) Entered as Reported by: BENJAMIN BOLTON on 05/28/171006 Escitalopram Oxalate (Escitalopram Oxalate) 20 Mg Tablet, 20 MG PO DAILY, (Repor valeria) Entered as Reported by: BENJAMIN BOLTON on 05/28/171006 Ferrous Sulfate (Iron) 325 Mg Tablet, 325 MG PO DAILY, (Reported) Entered as Reported by: BENJAMIN BOLTON on 05/28/171006 Fluconazole (Fluconazole) 100 Mg Tablet, 100 MG PO DAILY Prescribed by: CHRIS CASTRO on 06/02/17903 Hydrochlorothiazide (Hydrochlorothiazide) 25 Mg Tablet, 25 MG PO DAILY, (Reported) Entered as Reported by: BENJAMIN BOLTON on 05/28/171006 Ibuprofen (Ibuprofen) 200 Mg Tablet, 400 MG PO DAILY PRN for PAIN-MILD, (Reported) Entered as Reported by: BENJAMIN BOLTON on 05/28/171006 L. Acidophilus/Bulgaricus (Floranex Tablet) 1 Each Tablet, 1 TAB.CHEW PO QID Prescribed by: CHRIS CASTRO on 06/02/17903 Magnesium Chloride (Slow-Mag) 64 Mg Tab, 64 MG PO BID, (Reported) Entered as Reported by: BENJAMIN BOLTON on 05/28/171006 Omeprazole (Omeprazole) 40 Mg Capsule.dr, 40 MG PO HS, (Reported) Entered as Reported by: BENJAMIN BOLTON on 05/28/171006 Potassium Chloride (Klor-Con M20) 20 Meq Tab.er.prt, 40 MEQ PO BID, (Reported) Entered as Reported by: BENJAMIN BOLTON on 05/28/171006 Prednisone (Prednisone) 5 Mg Tablet, 5 MG PO DAILY, (Reported) Entered as Reported by: BENJAMIN BOLTON on 05/28/171006 Terazosin HCl (Terazosin HCl) 5 Mg Capsule, 5 MG PO DAILY, (Reported) Entered as Reported by: BENJAMIN BOLTON on 05/28/171006 Topiramate (Topiramate) 50 Mg Tablet, 50 MG PO BID, (Reported) Entered as Reported by: BENJAMIN BOLTON on 05/28/171006 Vitamin E Acetate (Vitamin E) 400 Unit Capsule, 400 UNIT PO BID, (Reported) Entered as Reported by: BENJAMIN BOLTON on 05/28/171006 Review of Systems Review of Systems Constitutional: no symptoms reported EENTM: No Symptoms Reported Respiratory: Cough, Shortness of Air Cardiovascular: Chest Pain Gastrointestinal: No Symptoms Reported Genitourinary: No Symptoms Reported Musculoskeletal: no symptoms reported Skin: no symptoms reported Psychiatric/Neurological: No Symptoms Reported Endocrine: No Symptoms Reported Hematologic/Lymphatic: No Symptoms Reported Past Ymbegcc-[id number]-Xupboq Hx Patient Social History Tobacco Use?: No Substance use?: No Alcohol Use?: No Seasonal Allergies Seasonal Allergies: Yes Past Medical History Surgery/Hospitalization HX: DEPRESSION, DIABETIC TYPE 2, RA,CIRROHSIS OF THE LIVER, LOW PLATELETS, HTN Surgeries: Yes Abdominal, Appendectomy, Gallbladder Respiratory: No Pneumonia Currently Using CPAP: No Currently Using BIPAP: No Cardiac: Yes High Cholesterol, Hypertension Neurological: Yes Headaches /Migraines Reproductive Disorders: No Sexually Transmitted Disease: No HIV/AIDS: No Genitourinary: No Gastrointestinal: Yes Esophageal Varices, Cirrhosis Musculoskeletal: No Rheumatoid Arthritis Endocrine: Yes Diabetes, Non-Insulin dep HEENT: No Loss of Vision: Denies Hearing Impairment: Denies Cancer: No Psychosocial: Yes Anxiety, Depression Integumentary: Yes Psoriasis Blood Disorders: No Adverse Reaction/Blood Tranf: No Family Medical History Reviewed Nursing Family Hx Heart Disease, Hypertension Physical Exam Vital Signs Vital Signs - First Documented 10/14/22 20:08 Pulse 68 B/P (MAP) 118/49 (72) Pulse Ox 98 O2 Delivery Room Air Capillary Refill : Height, Weight, BMI Height: 5'1.00" Weight: 233lbs. 0.0oz. 105.982097xp; 44.00 BMI Method:Stated General Appearance: No Apparent Distress, WD/WN HEENT: Normal ENT Inspection, Pharynx Normal Neck: Normal Inspection, Non Tender, Supple Respiratory: Chest Non Tender, Lungs Clear, Normal Breath Sounds, No Accessory Muscle Use, No Respiratory Distress Cardiovascular: Regular Rate, Rhythm, No Edema, No Gallop, No JVD, No Murmur, Normal Peripheral Pulses Gastrointestinal: Normal Bowel Sounds, No Organomegaly, No Pulsatile Mass, Non Tender, Soft Extremity: Normal Capillary Refill, Normal Inspection, Normal Range of Motion, Non Tender, No Calf Tenderness, No Pedal Edema Neurologic/Psychiatric: Alert, Oriented x3, Normal Mood/Affect Skin: Normal Color, Warm/Dry Progress/Results/Core Measures Results/Orders Lab Results Laboratory Tests Test 10/14/22 20:13 Range/Units White Blood Count 2.9 L 4.3-11.0 10^3/uL Red Blood Count 3.80 3.80-5.11 10^6/uL Hemoglobin 11.2 L 11.5-16.0 g/dL Hematocrit 33 L 35-52 % Mean Corpuscular Volume 88 80-99 fL Mean Corpuscular Hemoglobin 30 25-34 pg Mean Corpuscular Hemoglobin Concent 34 32-36 g/dL Red Cell Distribution Width 15.1 H 10.0-14.5 % Platelet Count 35 *L 130-400 10^3/uL Mean Platelet Volume 11.7 9.0-12.2 fL Immature Granulocyte % (Auto) 0 % Neutrophils (%) (Auto) 73 42-75 % Lymphocytes (%) (Auto) 15 12-44 % Monocytes (%) (Auto) 11 0-12 % Eosinophils (%) (Auto) 1 0-10 % Basophils (%) (Auto) 0 0-10 % Neutrophils # (Auto) 2.1 1.8-7.8 10^3/uL Lymphocytes # (Auto) 0.5 L 1.0-4.0 10^3/uL Monocytes # (Auto) 0.3 0.0-1.0 10^3/uL Eosinophils # (Auto) 0.0 0.0-0.3 10^3/uL Basophils # (Auto) 0.0 0.0-0.1 10^3/uL Immature Granulocyte # (Auto) 0.0 0.0-0.1 10^3/uL Percent Immature Platelet Fraction 5.3 0.0-7.6 % Sodium Level 131 L 135-145 MMOL/L Potassium Level 5.0 3.6-5.0 MMOL/L Chloride Level 99 98-107 MMOL/L Carbon Dioxide Level 24 21-32 MMOL/L Anion Gap 8 5-14 MMOL/L Blood Urea Nitrogen 19 H 7-18 MG/DL Creatinine 0.79 0.60-1.30 MG/DL Estimat Glomerular Filtration Rate 87 BUN/Creatinine Ratio 24 Glucose Level 162 H 70-105 MG/DL Calcium Level 9.3 8.5-10.1 MG/DL Corrected Calcium 9.9 8.5-10.1 MG/DL Total Bilirubin 1.8 H 0.1-1.0 MG/DL Aspartate Amino Transf (AST/SGOT) 32 5-34 U/L Alanine Aminotransferase (ALT/SGPT) 30 0-55 U/L Alkaline Phosphatase 176 H 40-136 U/L Troponin I < 0.028 <0.028 NG/ML Total Protein 7.0 6.4-8.2 GM/DL Albumin 3.3 3.2-4.5 GM/DL My Orders Orders - ABEL DANIELLE DO Troponin I Monie (10/14/22 20:05) Chest 1 View, Ap/Pa Only (10/14/22 20:05) Comprehensive Metabolic Panel (10/14/22 20:05) Cbc With Automated Diff (10/14/22 20:05) Vital Signs/I&O 10/14/22 20:08 Pulse 68 B/P (MAP) 118/49 (72) Pulse Ox 98 O2 Delivery Room Air Blood Pressure Mean: 72 Comment Sinus rhythm with a rate of 66 bpm. Normal intervals. Normal axis. No ST or T wave abnormalities. No ectopy. No STEMI. Departure Communication (Admissions) EKG is nonischemic, troponin is negative. Chest x-ray is clear on my interpretation and radiology agrees. Vital signs are normal and exam is reassuring. Remainder of lab work-up is unremarkable. Is likely sequela of a viral illness. Advise she follow-up with her primary doctor for possible stress testing, echocardiogram and strict return precautions. Impression Primary Impression: Chest tightness Disposition: 01 HOME, SELF-CARE Condition: Stable Departure-Patient Inst. Referrals: CATARINO HERNANDEZ MD (PCP) Primary Care Physician Patient Instructions: Chest Pain That Is Not Caused by the Heart (DC) Add. Discharge Instructions: You are seen in the emergency department today for tightness in her chest and some shortness of breath. I do not think this is coming from a heart attack. Your chest x-ray shows clear lungs with no evidence for obvious pneumonia. This may be residual from a viral type illness. I recommend you follow-up with your primary doctor for discussion of possible stress testing and echocardiogram, and ultrasound of your heart. If your symptoms worsen in any way concerning to you please return to the emergency department. Call your primary care doctor tomorrow to schedule your earliest follow-up. All discharge instructions reviewed with patient and/or family. Voiced understanding. ABEL DANIELLE DO Oct 14, 2022 21:07
[2022-10-14 21:16] VITALS: BP 99/76
== END 2022-10-14 21:17 | disposition home or self-care (01) ==
LOC: EDUNIT# 19:02 → ER 19:03
DX: R07.89 Other chest pain (principal)
CPT/HCPCS: 36415; 71045; 80053; 84484; 85025; 93005

== ENCOUNTER → 2023-04-06 | Outpatient (CLI) | payer BC ==
[~2023-04-06] MED LIST changes: +ENAL-70 PO; -ENAL20TA16 PO; +TOPI-241 PO; -TOPI50TA13 PO
--- NOTE | 2023-04-06 15:15 | Diagnostic Imaging Report ---
INDICATION: Routine screening. Comparison is made with prior mammogram from 04/26/2015 and 10/09/2013. 2-D and 3-D bilateral screening mammography was performed with CAD. Scattered fibroglandular densities are identified bilaterally. The parenchymal pattern is stable. No mass or malignant-appearing microcalcifications are seen. There are benign calcification s bilaterally. The axillae are unremarkable. IMPRESSION: No mammographic features suspicious for malignancy are identified. ACR BI-RADS Category 2: Benign findings. Result letter will be mailed to the patient. Note: At least 10% of breast cancer is not imaged by mammography. BI-RADS Category 2 Dictated by: Dictated on workstation # [id number]
== END ==
LOC: RAD 07:27
PROVIDERS: ATTEND Family Medicine
DX: Z12.31 Encounter for screening mammogram for malignant neoplasm of breast (principal)
CPT/HCPCS: 77063; 77067